=== PATIENT | female | born 1950 | race Caucasian/White ===

== ENCOUNTER → 2016-09-15 | Outpatient (CLI) | payer BC ==
--- NOTE | 2016-09-15 15:45 | BD ---
EXAMINATION TYPE: MG DEXA axial skeleton. DATE OF EXAM: 09/15/2016 COMPARISON: NONE CLINICAL HISTORY: 66-year-old female osteopenia Height: 61.5 IN Weight: 128 LBS FRAX RISK QUESTIONS: Alcohol (3 or more units per day): NO Family History (Parent hip fracture): NO Glucocorticoids (More than 3mos): NO (Ex: prednisone, prednisolone, methylprednisolone, dexamethasone, and hydrocortisone). History of Fracture in Adulthood: NO Secondary Osteoporosis: 1. Type 1 Diabetes: NO 2. Hyperthyroidism: NO 3. Menopause before 45: NO 4. Malnutrition: NO 5. Chronic liver disease: NO Rheumatoid Arthritis: NO Current Tobacco Use: NO RISK FACTORS HISTORY OF: Active: YES Diet low in dairy products/other sources of calcium: YES Postmenopausal woman: AGE 56 If Premenopausal, do you have irregular periods: Take estrogen and/or progesterone medications: YES HRT CREAM How lon YRS MEDICATIONS: Osteoporosis Medications: NOT NOW Which medication: Fosamax How Long: AGE 50 - 55 Additional Medications: CALCIUM, VIT D, ATORVASTATIN, HRT CREAM,VAGIFEM, GLUCOSAMINE SULFATE, OMEGA 3 OIL, MILK THISTLE, 5HTP, FOLATE, B12, MULTI VIT, BABY ASPIRIN, BOSWELLIA, NASAL SPRAY FOR ALLERGIES, EXAM MEASUREMENTS: Bone mineral densitometry was performed using the [employer] System. Bone mineral density as measured about the Lumbar spine is: ----- L1-L4(G/cm2): 1.031 T Score Values are as follows: ----- L2: -2.1 ----- L3: -1.0 ----- L4: -0.5 ----- L1-L4: -1.2 Bone mineral density BASELINE Bone mineral density about the R hip (g/cm2): 0.930 Bone mineral density about the L hip (g/cm2): 0.945 T Score values are as follows: -----R Neck: -0.8 -----L Neck: -0.7 -----R Total: -0.4 -----L Total: -0.1 Bone mineral density BASELINE IMPRESSION: Osteopenia as indicated by T score values in the lumbar spine. There is slightly increased risk of fracture and the patient may be considered for treatment. Re-Screen 2-5 years. NOTE: T-SCORE=SD OF THE YOUNG ADULT MEAN.
--- NOTE | 2016-09-16 11:31 | MM ---
Reason for exam: screening (asymptomatic). Last mammogram was performed 10 months ago. History: Patient is postmenopausal and is nulliparous. Taking estrogen for 10 years. Taking progesterone for 10 years. Physical Findings: A clinical breast exam by your physician is recommended on an annual basis and results should be correlated with mammographic findings. MG 3D Screening Mammo W/Cad Bilateral CC and MLO view(s) were taken. Prior study comparison: November 05, 2015, mammogram. June 17, 2014, mammogram. The breast tissue is heterogeneously dense. This may lower the sensitivity of mammography. Finding: There are typically benign round calcifications in the left breast. There is a chronic nodularity in the left breast. There is no discrete abnormality. ASSESSMENT: Benign, BI-RAD 2 RECOMMENDATION: Routine screening mammogram of both breasts in 1 year.
== END | disposition home or self-care (01) ==
LOC: RADMAMWWP 13:36
PROVIDERS: ATTEND Family Medicine
CPT/HCPCS: 77080; 77063; G0202

== ENCOUNTER → 2017-06-14 | Outpatient (CLI) | payer MEDICARE, OTHER ==
--- NOTE | 2017-06-15 08:00 | CT ---
EXAMINATION TYPE: CT soft tissue neck w con DATE OF EXAM: 06/14/2017 HISTORY: Lump sensation to right side of throat COMPARISON: NONE CT DLP: 339 mGycm. Automated Exposure Control for Dose Reduction was Utilized. TECHNIQUE: CT scan of the neck is performed with IV Contrast, patient injected with 100 mL of Isovue 300, axial images are obtained, coronal and sagittal reformatted images are reviewed. FINDINGS: Airway: Artifact from cavitary fillings is noted. Airway is otherwise patent. Region of the epiglotti s and vallecula appear within normal limits. Thyroid gland is unremarkable. Lung apices show mild omi pical pleural/parenchymal scarring. Parotid/submandibular glands: No gross abnormality seen. Carotid/Vascular Structures: Mild calcified plaque is seen at the left carotid bulb. No significant s tenosis is present bilaterally. There is dominant right vertebral artery noted. Osseous Structures: There is moderate to advanced spurring and disc space narrowing C5-C6 level. Other: There are scattered subcentimeter lymph nodes throughout the neck bilaterally. No greater than 1 cm asymmetric suspicious neck adenopathy is present. IMPRESSION: Area of concern was not marked by technologist in right side of neck. No obvious suspicio us mass or adenopathy noted.
== END | disposition home or self-care (01) ==
LOC: RADCTMAIN 17:23
PROVIDERS: ATTEND Otolaryngology
DX: R22.1 Localized swelling, mass and lump, neck (principal)
CPT/HCPCS: 82565; 84520; 70491; 36415; Q9967

== ENCOUNTER → 2017-07-15 | Outpatient (CLI) | payer MEDICARE, OTHER ==
[2017-07-15 10:29] LABS: HCT 43.3 % (34.0-46.0); HGB 13.4 gm/dL (11.4-16.0); MCH 27.5 pg (25.0-35.0); MCV 88.9 fL (80.0-100.0); Mean Platelet Volume 7.6; Platelet Count 266 k/uL (150-450); RBC 4.87 m/uL (3.80-5.40); RDW 13.6 % (11.5-15.5); WBC 4.8 k/uL (3.8-10.6)
[2017-07-15 10:45] LABS: Calcium 9.2 mg/dL (8.4-10.2); Potassium 4.3 mmol/L (3.5-5.1)
== END | disposition home or self-care (01) ==
LOC: LABWHC1 10:01
PROVIDERS: ATTEND Family Medicine
DX: Z00.00 Encounter for general adult medical examination without abnormal findings (principal); E78.5 Hyperlipidemia, unspecified; R00.2 Palpitations; E55.9 Vitamin D deficiency, unspecified; M85.80 Other specified disorders of bone density and structure, unspecified site
CPT/HCPCS: 36415; 80048; 80061; 82306; 82550; 83735; 84443; 84450; 84460; 85027

== ENCOUNTER → 2017-10-12 | Outpatient (CLI) | payer MEDICARE, OTHER ==
--- NOTE | 2017-10-13 08:06 | MM ---
Reason for exam: screening (asymptomatic). Last mammogram was performed 1 year and 1 month ago. History: Patient is postmenopausal and is nulliparous. Taking estrogen for 10 years. Taking progesterone for 10 years. Physical Findings: A clinical breast exam by your physician is recommended on an annual basis and results should be correlated with mammographic findings. MG 3D Screening Mammo W/Cad Bilateral CC and MLO view(s) were taken. Prior study comparison: September 15, 2016, bilateral MG 3d screening mammo w/cad. November 05, 2015, mammogram. The breast tissue is heterogeneously dense. This may lower the sensitivity of mammography. There is benign appearing round calcifications in the left breast. There is chronic nodularity bilaterally. There is no discrete abnormality. ASSESSMENT: Benign, BI-RAD 2 RECOMMENDATION: Routine screening mammogram of both breasts in 1 year.
== END | disposition home or self-care (01) ==
LOC: RADMAMWWP 10:01
PROVIDERS: ATTEND Family Medicine
DX: Z12.31 Encounter for screening mammogram for malignant neoplasm of breast (principal)
CPT/HCPCS: 77063; 77067

== ENCOUNTER → 2018-02-20 | Outpatient (CLI) | payer MEDICARE, OTHER ==
[2018-02-20 18:58] LABS: Albumin 4.6 g/dL (3.80-4.90); Albumin/Globulin Ratio 2.88 (1.20-2.10); Anion Gap 6.2 mmol/L (4.00-12.00); Calcium 9.2 mg/dL (8.7-10.3); Carbon Dioxide 25.8 mmol/L (21.6-31.8); Globulin 1.6 g/dL (2.1-3.7); Potassium 4.9 mmol/L (3.5-5.5); Total Bilirubin 0.7 mg/dL (0.2-1.2); Total Protein 6.2 g/dL (6.2-8.2)
[2018-02-20 19:01] LABS: DHEA Sulfate 128.1 ug/dL (26.0-430.0); Progesterone 0.5 ng/mL
== END ==
LOC: LABWHC1 11:13
PROVIDERS: ATTEND Internal Medicine Endocrinology, Diabetes & Metabolism
DX: R23.2 Flushing (principal)
CPT/HCPCS: 36415; 80053; 82627; 82670; 84144; 84403; 84443

== ENCOUNTER → 2019-01-03 | Outpatient (CLI) | payer MEDICARE, OTHER ==
--- NOTE | 2019-01-05 10:27 | MM ---
Reason for exam: screening (asymptomatic). Last mammogram was performed 1 year and 3 months ago. History: Patient is postmenopausal and is nulliparous. Taking estrogen for 10 years. Taking progesterone for 10 years. Physical Findings: A clinical breast exam by your physician is recommended on an annual basis and results should be correlated with mammographic findings. MG 3D Screening Mammo W/Cad Bilateral CC and MLO view(s) were taken. Prior study comparison: October 12, 2017, bilateral MG 3d screening mammo w/cad. September 15, 2016, bilateral MG 3d screening mammo w/cad. The breast tissue is heterogeneously dense. This may lower the sensitivity of mammography. There is chronic nodularity in the left breast. Central nodular focal asymmetry just lateral to the retroareolar plane appears new. Adjacent chronic nodularity noted. ASSESSMENT: Incomplete: need additional imaging evaluation, BI-RAD 0 RECOMMENDATION: Special view mammogram of the left breast. If lesion persists on supplemental views, image directed ultrasound is recommended. [facility] will attempt to contact patient to return for supplemental views and ultrasound if indicated.
== END ==
LOC: RADMAMWWP 15:03
PROVIDERS: ATTEND Internal Medicine
DX: Z12.31 Encounter for screening mammogram for malignant neoplasm of breast (principal)
CPT/HCPCS: 77063; 77067

== ENCOUNTER → 2019-01-15 | Outpatient (CLI) | payer MEDICARE, OTHER ==
--- NOTE | 2019-01-15 12:25 | MM ---
Reason for exam: additional evaluation requested from abnormal screening. Last mammogram was performed less than 1 month ago. History: Patient is postmenopausal and is nulliparous. Benign excisional biopsy of the left breast. Taking estrogen beginning at age 56. Taking progesterone beginning at age 56. Physical Findings: Nurse did not find any significant physical abnormalities on exam. MG 3D Work Up W/Cad LT Spot compression CC, spot compression MLO, and ML view(s) were taken of the left breast. Prior study comparison: January 03, 2019, bilateral MG 3d screening mammo w/cad. October 12, 2017, bilateral MG 3d screening mammo w/cad. The breast tissue is heterogeneously dense. This may lower the sensitivity of mammography. There is a persistent left lower inner quadrant 4mm mass at middle depth, new from priors. These results were verbally communicated with the patient and result sheet given to the patient on 01/15/19. ASSESSMENT: Incomplete: need additional imaging evaluation, BI-RAD 0 RECOMMENDATION: Ultrasound of the left breast. (lower inner quadrant)
--- NOTE | 2019-01-15 12:27 | USB ---
Reason for exam: additional evaluation requested from abnormal screening. History: Patient is postmenopausal and is nulliparous. Benign excisional biopsy of the left breast. Taking estrogen beginning at age 56. Taking progesterone beginning at age 56. US Breast Workup Limited LT Left limited breast ultrasound including focal area of concern, retroareolar and axilla demonstrates no cystic or solid lesion seen. a 0.3 x 0.3 x 0.3cm round, cystic, hypoechoic lesion at 3 o'clock, likely small cyst. Precautionary 6 month follow up left mammogram. These results were verbally communicated with the patient and result sheet given to the patient on 01/15/19. ASSESSMENT: Probably benign, BI-RAD 3 RECOMMENDATION: Follow-up diagnostic mammogram of the left breast in 6 months.
== END | disposition home or self-care (01) ==
LOC: RADMAMWWP 10:06
PROVIDERS: ATTEND Internal Medicine
DX: R92.8 Other abnormal and inconclusive findings on diagnostic imaging of breast (principal); R92.2 Inconclusive mammogram
CPT/HCPCS: 77065; 76642; G0279; 77061

== ENCOUNTER → 2019-03-08 | Outpatient (CLI) | payer MEDICARE, OTHER ==
[2019-03-08 17:06] LABS: Chol/HDL Ratio 3.14; LDL Cholesterol,Calculated 109.8 mg/dL (0.0-131.0); VLDL Calculation 31.2 mg/dL (5.00-40.00)
== END | disposition home or self-care (01) ==
LOC: LABWHC1 10:28
PROVIDERS: ATTEND Family Medicine
DX: E78.5 Hyperlipidemia, unspecified (principal)
CPT/HCPCS: 36415; 80061; 82550; 84450; 84460

== ENCOUNTER → 2019-09-28 | Outpatient (CLI) | payer MEDICARE, OTHER ==
[2019-09-28 18:22] LABS: African American GFR (CKD) 67.5 (60.0-200.0); Albumin 4.6 g/dL (3.80-4.90); Albumin/Globulin Ratio 2.19 (1.60-3.17); Anion Gap 5.9 mmol/L (4.00-12.00); Calcium 9.5 mg/dL (8.7-10.3); Carbon Dioxide 27.1 mmol/L (21.6-31.8); Globulin 2.1 g/dL (1.6-3.3); Non-African American GFR(CKD) 58.2 (60.0-200.0); Potassium 4.6 mmol/L (3.5-5.5); Total Bilirubin 0.5 mg/dL (0.2-1.2); Total Protein 6.7 g/dL (6.2-8.2)
[2019-09-28 18:43] LABS: Hemoglobin A1C 5.4 % (4.0-6.0)
== END | disposition home or self-care (01) ==
LOC: LABWHC1 08:22
PROVIDERS: ATTEND Family Medicine
DX: Z00.00 Encounter for general adult medical examination without abnormal findings (principal); E78.5 Hyperlipidemia, unspecified; R73.9 Hyperglycemia, unspecified
CPT/HCPCS: 36415; 80053; 82306; 83036; 84443

== ENCOUNTER → 2020-02-01 | Outpatient (CLI) | payer MEDICARE, OTHER ==
--- NOTE | 2020-02-04 09:21 | MM ---
Reason for exam: additional evaluation requested from prior study. Last mammogram was performed 1 year and 1 month ago. History: Patient is postmenopausal and is nulliparous. Benign excisional biopsy of the left breast. Taking estrogen beginning at age 56. Taking progesterone beginning at age 56. Physical Findings: Nurse did not find any significant physical abnormalities on exam. MG 3D Diag Mammo W/Cad ROLLY Bilateral CC and MLO view(s) were taken. Prior study comparison: January 15, 2019, left breast MG 3d work up w/cad LT. January 03, 2019, bilateral MG 3d screening mammo w/cad. The breast tissue is heterogeneously dense. This may lower the sensitivity of mammography. There is chronic nodularity in the left breast. There is no discrete abnormality including area of concern on left breast from 2019. No significant new findings when compared with previous films. These results were verbally communicated with the patient and result sheet given to the patient on 02/01/20. ASSESSMENT: Benign, BI-RAD 2 RECOMMENDATION: Routine screening mammogram of both breasts in 1 year.
== END | disposition home or self-care (01) ==
LOC: RADMAMWWP 08:59
PROVIDERS: ATTEND Family Medicine
DX: R92.8 Other abnormal and inconclusive findings on diagnostic imaging of breast (principal)
CPT/HCPCS: 77066; G0279; 77062

== ENCOUNTER → 2020-05-16 | Outpatient (CLI) | payer MEDICARE, OTHER ==
--- NOTE | 2020-05-16 16:01 | US ---
EXAMINATION TYPE: US pelvis complete transvag DATE OF EXAM: 05/16/2020 COMPARISON: NONE CLINICAL HISTORY: 70-year-old female R10.2 Pelvic pressure greater on the left TECHNIQUE: Transabdominal sonographic images of the pelvis were acquired. Transvaginal sonographic i mages were medically necessary to better assess the following anatomy: uterus and ovaries Date of LMP: unknown FINDINGS: EXAM MEASUREMENTS: Uterus: 6.7 x 2.5 x 4.2 cm Endometrial Stripe: 0.3 cm Right Ovary: unable to visualize Left Ovary: unable to visualize 1. Uterus: Anteverted 2. Endometrium: calcifications noted 3. Right Ovary: Obscured by overlying bowel gas 4. Left Ovary: Obscured by overlying bowel gas 5. Bilateral Adnexa: increased vascularity left adnexa 6. Posterior cul-de-sac: appears wnl IMPRESSION: 1. Thin endometrial stripe at 3 mm. Some calcifications are present suggesting sequela of prior infec tion or instrumentation. 2. Neither ovary could be visualized. 3. Increased left adnexal vascularity may be seen with pelvic congestion syndrome. Clinically correla te.
== END | disposition home or self-care (01) ==
LOC: RADUSWWP 13:40
PROVIDERS: ATTEND Family Medicine
DX: R93.89 Abnormal findings on diagnostic imaging of other specified body structures (principal)
CPT/HCPCS: 76830; 76856

== ENCOUNTER → 2020-05-22 | Outpatient (CLI) | payer MEDICARE, OTHER ==
[2020-05-22 10:56] LABS: Appearance,Urine Clear (Clear); Bilirubin,Urine Negative (Negative); Blood,Urine Negative (Negative); Color,Urine Light Yellow; Glucose,Urine (UA) Negative (Negative); Ketones,Urine Negative (Negative); Leukocyte Esterase,Urine Trace (Negative); Nitrite,Urine Negative (Negative); PH, Urine 6.5 (5.0-8.0); Protein,Urine Negative (Negative); RBC,Urine <1 /hpf (0-5); Specific Gravity,Urine 1.008 (1.001-1.035); Urobilinogen,Urine <2.0 mg/dL (<2.0); WBC,Urine 1 /hpf (0-5)
[2020-05-22 18:42] LABS: HCT 43.3 % (37.2-46.3); HGB 13.6 g/dL (12.0-15.0); MCH 28.8 pg (27.0-32.0); MCHC 31.4 g/dL (32.0-37.0); MCV 91.7 fL (80.0-97.0); Mean Platelet Volume 11.3 fL (9.5-12.2); Platelet Count 263 X 10*3/uL (140-440); RBC 4.72 X 10*6/uL (4.10-5.20); RDW 14.1 % (11.5-14.5)
[2020-05-22 20:57] LABS: Hemoglobin A1C 5.3 % (4.0-6.0)
[2020-05-22 21:48] LABS: African American GFR (CKD) 59.7 (60.0-200.0); Albumin 4.6 g/dL (3.80-4.90); Albumin/Globulin Ratio 2.71 (1.60-3.17); Anion Gap 9.4 mmol/L (4.00-12.00); BUN/Creat Ratio 11.82 Ratio (12.00-20.00); Calcium 9.4 mg/dL (8.7-10.3); Carbon Dioxide 23.6 mmol/L (21.6-31.8); Chol/HDL Ratio 3.33; Globulin 1.7 g/dL (1.6-3.3); Non-African American GFR(CKD) 51.5 (60.0-200.0); Potassium 4.8 mmol/L (3.5-5.5); Total Bilirubin 0.7 mg/dL (0.3-1.2); Total Protein 6.3 g/dL (6.2-8.2)
== END | disposition home or self-care (01) ==
LOC: LABWHC1 09:16
PROVIDERS: ATTEND Family Medicine
DX: E78.5 Hyperlipidemia, unspecified (principal); R73.9 Hyperglycemia, unspecified; E55.9 Vitamin D deficiency, unspecified; E28.39 Other primary ovarian failure; N95.2 Postmenopausal atrophic vaginitis; M85.80 Other specified disorders of bone density and structure, unspecified site; N63.0 Unspecified lump in unspecified breast; R30.0 Dysuria; R10.2 Pelvic and perineal pain
CPT/HCPCS: 36415; 80053; 80061; 81001; 82306; 83036; 84402; 84443; 85027

== ENCOUNTER → 2020-07-07 | Outpatient (CLI) | payer MEDICARE, OTHER | END | disposition home or self-care (01) | LOC: LABWHC1 09:00 | PROVIDERS: ATTEND Family Medicine | DX: E72.12 Methylenetetrahydrofolate reductase deficiency (principal) | CPT/HCPCS: 36415; 83090 ==

== ENCOUNTER → 2021-02-18 | Outpatient (CLI) | payer MEDICARE, OTHER ==
--- NOTE | 2021-02-19 12:17 | MM ---
Reason for exam: screening (asymptomatic). Last mammogram was performed 1 year and 1 month ago. History: Patient is postmenopausal and is nulliparous. Benign excisional biopsy of the left breast. Taking estrogen beginning at age 56. Taking progesterone beginning at age 56. Physical Findings: A clinical breast exam by your physician is recommended on an annual basis and results should be correlated with mammographic findings. MG 3D Screening Mammo W/Cad Bilateral CC and MLO view(s) were taken. Prior study comparison: February 01, 2020, bilateral MG 3d diag mammo w/cad ROLLY. January 15, 2019, left breast MG 3d work up w/cad LT. The breast tissue is heterogeneously dense. This may lower the sensitivity of mammography. There are benign appearing round calcifications bilaterally. There is chronic nodularity in the left breast. There is no discrete abnormality. ASSESSMENT: Benign, BI-RAD 2 RECOMMENDATION: Routine screening mammogram of both breasts in 1 year.
== END | disposition home or self-care (01) ==
LOC: RADMAMWWP 09:37
PROVIDERS: ATTEND Family Medicine
DX: Z12.31 Encounter for screening mammogram for malignant neoplasm of breast (principal); Z78.0 Asymptomatic menopausal state
CPT/HCPCS: 77063; 77067

== ENCOUNTER → 2021-02-20 | Outpatient (CLI) | payer MEDICARE, OTHER ==
--- NOTE | 2021-02-20 16:26 | BD ---
EXAMINATION TYPE: Axial Bone Density DATE OF EXAM: 02/20/2021 COMPARISON: 09/15/2016 DEXA bone scan. CLINICAL HISTORY: Osteopenia. Height: 61 IN Weight: 129 LBS RISK FACTORS HISTORY OF: Family History of Osteoporosis: YES MOTHER Active: YES Diet low in dairy products/other sources of calcium: YES Postmenopausal woman: AGE 55 Take estrogen and/or progesterone medications: YES HORMONE CREAM How lon YEARS MEDICATIONS: Additional Medications: HORMONE CREAM, NASAL SPRAY, ATIVAN, MELOXICAM, PEPCID, ATORVASTATIN, EXAM MEASUREMENTS: Bone mineral densitometry was performed using the [employer] System. Bone mineral density as measured about the Lumbar spine is: ----- L1-L4(G/cm2): 1.043 T Score Values are as follows: ----- L2: -1.9 ----- L3: -0.9 ----- L4: -0.5 ----- L1-L4: -1.1 Bone mineral density has: Increased 0.7% since study of: 09/15/2016 Bone mineral density about the R hip (g/cm2): 0.964 Bone mineral density about the L hip (g/cm2): 0.978 T Score values are as follows: -----R Neck: -0.5 -----L Neck: -0.4 -----R Total: -0.5 -----L Total: -0.2 Bone mineral density has: Decreased -1.2% since study of: 09/15/2016 IMPRESSION: Osteopenia (T Score between -2.5 and -1) in the low back remains present. There is slightly increased risk of fracture and the patient may be considered for treatment. Re-Screen 2-5 years. NOTE: T-SCORE=SD OF THE YOUNG ADULT MEAN.
== END | disposition home or self-care (01) ==
LOC: RADBDWWP 15:01
PROVIDERS: ATTEND Family Medicine
DX: M85.88 Other specified disorders of bone density and structure, other site (principal)
CPT/HCPCS: 77080

== ENCOUNTER → 2021-04-08 | Outpatient (CLI) | payer MEDICARE, OTHER ==
--- NOTE | 2021-04-08 10:00 | XR ---
EXAMINATION TYPE: XR Hip LT and AP Pelvis DATE OF EXAM: 04/08/2021 CLINICAL HISTORY: pain TECHNIQUE: Single view the pelvis is submitted. 2 views of left hip are also submitted. FINDINGS: No evidence for fracture, dislocation or bony lesion. Joint spaces are well-preserved. S I joints appear symmetric. IMPRESSION: 1. No acute fracture or dislocation seen. ICD 10 NO FRACTURE, INITIAL EVALUATION
--- NOTE | 2021-04-08 10:27 | XR ---
EXAMINATION TYPE: XR lumbar spine with bend/flex DATE OF EXAM: 04/08/2021 CLINICAL HISTORY: pain COMPARISON: NONE TECHNIQUE: Frontal, lateral, and oblique images of the lumbar spine are obtained. Flexion and extensi on views are obtained as well. FINDINGS: There is grade 1 anterolisthesis L4 on L5 measuring 5.3 mm at neutral, 3.1 mm at extension and 5.3 mm at flexion. There is a grade 1 anterolisthesis of L5 on S1 measuring 2.7 mm at neutral, 2. 4 mm upon extension and 6.5 mm at flexion. The remaining levels are within normal limits. Facet joint arthropathy noted. No compression fracture seen. Moderate to severe lower lumbar facet joint arthrop athy. IMPRESSION: As above
== END | disposition home or self-care (01) ==
LOC: RADXRMAIN 09:13
PROVIDERS: ATTEND Family Medicine
DX: M47.816 Spondylosis without myelopathy or radiculopathy, lumbar region (principal); M43.8X6 Other specified deforming dorsopathies, lumbar region; M43.16 Spondylolisthesis, lumbar region; R10.32 Left lower quadrant pain; M25.552 Pain in left hip
CPT/HCPCS: 72114; 73502

== ENCOUNTER → 2022-03-30 | Outpatient (CLI) | payer MEDICARE, OTHER ==
--- NOTE | 2022-03-31 09:38 | MM ---
Reason for Exam: Screening (asymptomatic). Last mammogram was performed 1 year(s) and 1 month(s) ago. Patient History: Menarche at age 14. Patient has no children. Postmenopausal. Currently using Estrogen, starting at age 56. Currently using Progesterone, starting at age 56. Benign Excisional Biopsy on the left side. Risk Values: Tammie 5 year model risk: 2.3%. NCI Lifetime model risk: 6.9%. Prior Study Comparison: 01/15/2019 Left Diagnostic Mammogram, [facility]. 02/01/2020 Bilateral Diagnostic Mammogram, [facility]. 02/18/2021 Bilateral Screening Mammogram, [facility]. Tissue Density: The breast tissue is heterogeneously dense. This may lower the sensitivity of mammography. Findings: Analyzed By CAD. There is no suspicious group of microcalcifications or new suspicious mass in either breast. Benign calcifications bilaterally. Chronic nodularity in the left breast. Overall Assessment: Benign, BI-RAD 2 Management: Screening Mammogram of both breasts in 1 year. A clinical breast exam by your physician is recommended on an annual basis and results should be correlated with mammographic findings. Electronically signed and approved by: Yevgeniy Weiss D.O.
== END | disposition home or self-care (01) ==
LOC: RADMAMWWP 09:18
PROVIDERS: ATTEND Family Medicine
DX: Z12.31 Encounter for screening mammogram for malignant neoplasm of breast (principal); Z78.0 Asymptomatic menopausal state
CPT/HCPCS: 77063; 77067

== ENCOUNTER → 2022-06-04 | Outpatient (CLI) | payer MEDICARE, OTHER ==
[2022-06-04 18:56] LABS: Basophils # (A) 0.05 X 10*3/uL (0.00-0.10); Basophils % (A) 0.9 %; Eosinophils # (A) 0.02 X 10*3/uL (0.04-0.35); Eosinophils % (A) 0.3 %; HCT 45.5 % (37.2-46.3); HGB 13.9 g/dL (12.0-15.0); Immature Grans, Automated 0.3 %; Lymphocytes # (A) 1.53 X 10*3/uL (0.90-5.00); Lymphocytes % (A) 26.6 %; MCH 28.3 pg (27.0-32.0); MCHC 30.5 g/dL (32.0-37.0); MCV 92.5 fL (80.0-97.0); Mean Platelet Volume 10.9 fL (9.5-12.2); Monocytes # (A) 0.45 X 10*3/uL (0.20-1.00); Monocytes % (A) 7.8 %; NRBC Per 100 WBC 0 /100 WBCS (0.0-0.0); Neutrophils # (A) 3.68 X 10*3/uL (1.80-7.70); Neutrophils % (A) 64.1 %; Platelet Count 287 X 10*3/uL (140-440); RBC 4.92 X 10*6/uL (4.10-5.20); RDW 13.8 % (11.5-14.5); WBC 5.75 X 10*3/uL (4.50-10.00)
[2022-06-04 19:24] LABS: African American GFR (CKD) 66.1 (60.0-200.0); Albumin 4.7 g/dL (3.8-4.9); Albumin/Globulin Ratio 1.96 (1.60-3.17); Anion Gap 12.1 mmol/L (10.00-18.00); BUN/Creat Ratio 17.7 Ratio (12.00-20.00); Blood Urea Nitrogen 17.7 mg/dL (9.0-27.0); Calcium 9.8 mg/dL (8.7-10.3); Carbon Dioxide 23.9 mmol/L (20.0-27.5); Globulin 2.4 g/dL (1.6-3.3); Potassium 5.1 mmol/L (3.5-5.5); Total Bilirubin 0.3 mg/dL (0.30-1.20); Total Protein 7.1 g/dL (6.2-8.2)
== END | disposition home or self-care (01) ==
LOC: LABWHC1 10:50
PROVIDERS: ATTEND Nurse Practitioner Family
DX: K92.1 Melena (principal)
CPT/HCPCS: 36415; 80053; 85025

== ENCOUNTER → 2023-05-06 | Outpatient (CLI) | payer MEDICARE, OTHER ==
--- NOTE | 2023-05-06 15:35 | XR ---
EXAMINATION TYPE: XR finger RT DATE OF EXAM: 05/06/2023 COMPARISON: None HISTORY: Chronic pain first digit TECHNIQUE: 3 view right thumb FINDINGS: No acute fractures or dislocations are evident. Joint spaces and mild diffuse narrowing. So me spurring is noted at the dorsal distal phalanx right thumb. Follow up exams can be performed 7-10 days from acute trauma for continued pain. IMPRESSION: 1. No acute osseous abnormality. 2. Mild degenerative joint changes right thumb.
--- NOTE | 2023-05-06 15:36 | XR ---
EXAMINATION TYPE: XR hand complete RT DATE OF EXAM: 05/06/2023 COMPARISON: None HISTORY: Chronic pain TECHNIQUE: 3 view right hand FINDINGS: No acute fractures or dislocations are evident. The soft tissues appear normal. Diffuse jose raul rowing of the proximal and distal interphalangeal joint spaces is present. Follow up exams can be performed 7-10 days from acute trauma for continued pain. IMPRESSION: 1. Mild chronic appearing joint changes right hand. 2. No acute osseous abnormality.
== END | disposition home or self-care (01) ==
LOC: RADXRMAIN 15:12
PROVIDERS: ATTEND Internal Medicine
DX: M77.8 Other enthesopathies, not elsewhere classified (principal); M79.641 Pain in right hand

== ENCOUNTER → 2023-05-11 | Outpatient (CLI) | payer MEDICARE, OTHER ==
--- NOTE | 2023-05-11 17:26 | BD ---
EXAMINATION TYPE: Axial Bone Density DATE OF EXAM: 05/11/2023 CLINICAL HISTORY: 73 years old Female. ICD-10 CODE: M85.80 OT DISRD OF BONE DENSITY Height: 61.75" Weight: 134.9lbs FRAX RISK QUESTIONS: Alcohol (3 or more units per day): No Family History (Parent hip fracture): No Glucocorticoids (More than 3mos): No (Ex: prednisone, prednisolone, methylprednisolone, dexamethasone, and hydrocortisone). History of Fracture in Adulthood: No Secondary Osteoporosis: 1. Type 1 Diabetes: No 2. Hyperthyroidism: No 3. Menopause before 45: Unknown 4. Malnutrition: No 5. Chronic liver disease: No Rheumatoid Arthritis: No Current Tobacco Use: No RISK FACTORS HISTORY OF: Hip Fracture (Right/Left): No Spine Fracture: No History of Wrist Fracture: No Surgery to Spine/Hip(right/left)/Wrist (right/left): No MEDICATIONS: Thyroid Medications: No Osteoporosis Medications: No EXAM MEASUREMENTS: Bone mineral densitometry was performed using the [employer] System. Bone mineral density as measured about the Lumbar spine is: ----- L1-L4(G/cm2): 1.067 T Score Values are as follows: ----- L1: -1.7 ----- L2: -2.1 ----- L3: -08 ----- L4: 0.0 ----- L1-L4: -0.9 Z Score Values are as follows: ----- L1: 0.1 ----- L2: -0.3 ----- L3: 1.0 ----- L4: 1.8 ----- L1-L4: 0.9 Bone mineral density has: increased 2.3% since study of: 02/20/2021 Bone mineral density about the R hip (g/cm2): 0.987 Bone mineral density about the L hip (g/cm2): 0.942 T Score values are as follows: -----R Neck: -0.1 -----L Neck: 0.0 -----R Total: -0.2 -----L Total: -0.5 Z Score values are as follows: -----R Neck: 1.7 -----L Neck: 1.8 -----R Total: 1.4 -----L Total: 1.1 Bone mineral density has: increased 0.3% since study of: FRAX%s: The graph provided illustrates a 7.4% chance for a major osteoporotic fx and a 0.5% chance fo r the hips probability for fx in 10 years time. IMPRESSION: Normal (Values between +1 and -1 indicate normal bone mass). Note that measurements are bordering on osteopenia in the lumbar spine. Consider repeating this study in 5 years or sooner if there is some n ew clinical indication. NOTE: T-SCORE=SD OF THE YOUNG ADULT MEAN.
--- NOTE | 2023-05-12 10:24 | MM ---
Reason for Exam: Screening (asymptomatic). Last mammogram was performed 1 year(s) and 2 month(s) ago. Patient History: Menarche at age 14. Patient has no children. Postmenopausal. Currently using Estrogen, starting at age 56. Currently using Progesterone, starting at age 56. Benign Excisional Biopsy on the left side. Risk Values: Tammie 5 year model risk: 2.3%. NCI Lifetime model risk: 6.3%. Prior Study Comparison: 02/01/2020 Bilateral Diagnostic Mammogram, [facility]. 02/18/2021 Bilateral Screening Mammogram, [facility]. 03/30/2022 Bilateral MG 3D screening mammo w/cad, [facility]. Tissue Density: The breasts are heterogeneously dense, which may obscure small masses. Findings: Analyzed By CAD. There is no suspicious group of microcalcifications or new suspicious mass in either breast. Overall Assessment: Benign, BI-RAD 2 Management: Screening Mammogram of both breasts in 1 year. . Patient should continue monthly self-breast exams. A clinical breast exam by your physician is recommended on an annual basis. This exam should not preclude additional follow-up of suspicious palpable abnormalities. Note on Tammie scores and lifetime risk: 1. A Tammie score greater than 3% is considered moderate risk. If this is the case, consider specialist referral to assess eligibility for a risk reducing agent. 2. If overall lifetime risk for the development of breast cancer is 20% or higher, the patient may qualify for future screening with alternating mammogram and breast MRI. Electronically signed and approved by: Morgan Alvarez M.D. Radiologis
== END | disposition home or self-care (01) ==
LOC: RADMAMWWP 10:30
PROVIDERS: ATTEND Internal Medicine
DX: Z12.31 Encounter for screening mammogram for malignant neoplasm of breast (principal); M85.89 Other specified disorders of bone density and structure, multiple sites; Z78.0 Asymptomatic menopausal state
CPT/HCPCS: 77063; 77067; 77080

== ENCOUNTER → 2023-10-31 | Outpatient (CLI) | payer MEDICARE, OTHER ==
--- NOTE | 2023-10-31 16:37 | XR ---
EXAMINATION TYPE: XR foot complete RT, XR ankle complete RT DATE OF EXAM: 10/31/2023 4:18 PM CLINICAL INDICATION: Female, 73 years old with history of M79.671 PAIN IN RIGHT FOOT; [facility] COMPARISON: None TECHNIQUE: XR foot complete RT, XR ankle complete RT examined in the AP, oblique, and lateral project ions. FINDINGS: No evidence of any acute osseous pathology. Multifocal degeneration changes throughout the joints of the foot with osteophyte formation and joint space narrowing. Calcaneal plantar spurring is present. IMPRESSION: 1. No evidence of acute fracture. 2. Calcaneal plantar spurring correlate for plantar fasciitis. Correlate with MRI. 3. Multifocal degeneration changes throughout the joints of the foot.
== END | disposition home or self-care (01) ==
LOC: RADXRMAIN 15:56
PROVIDERS: ATTEND Internal Medicine
DX: M79.671 Pain in right foot

== ENCOUNTER → 2024-06-01 | Outpatient (CLI) | payer MEDICARE, OTHER ==
--- NOTE | 2024-06-06 08:42 | MM ---
Reason for Exam: Screening (asymptomatic). Last screening mammogram was performed 12 month(s) ago. Patient History: Menarche at age 14. Patient has no children. Postmenopausal. Currently using Estrogen, starting at age 56. Currently using Progesterone, starting at age 56. Benign Excisional Biopsy on the left side. Risk Values: Tammie 5 year model risk: 2.3%. NCI Lifetime model risk: 6.0%. Prior Study Comparison: 02/18/2021 Bilateral Screening Mammogram, [facility]. 03/30/2022 Bilateral MG 3D screening mammo w/cad, [facility]. 05/11/2023 Bilateral MG 3D screening mammo w/cad, [facility]. Tissue Density: The breasts are heterogeneously dense, which may obscure small masses. Findings: Analyzed By CAD. There are grouped calcifications in the upper outer quadrant left breast. No dominant mass or architectural distortion. Overall Assessment: Incomplete: need additional imaging evaluation, BI-RAD 0 Management: Diagnostic Mammogram of the left breast. . Patient should continue monthly self-breast exams. A clinical breast exam by your physician is recommended on an annual basis. This exam should not preclude additional follow-up of suspicious palpable abnormalities. Note on Tammie scores and lifetime risk: 1. A Tammie score greater than 3% is considered moderate risk. If this is the case, consider specialist referral to assess eligibility for a risk reducing agent. 2. If overall lifetime risk for the development of breast cancer is 20% or higher, the patient may qualify for future screening with alternating mammogram and breast MRI. [facility], , 06/01/2024 10:20 AM. Electronically signed and approved by: Wilber Knapp M.D. Radiologis
== END | disposition home or self-care (01) ==
LOC: RADMAMWWP 09:40
PROVIDERS: ATTEND Internal Medicine
DX: Z12.31 Encounter for screening mammogram for malignant neoplasm of breast (principal); R92.1 Mammographic calcification found on diagnostic imaging of breast; R92.333 Mammographic heterogeneous density, bilateral breasts; Z78.0 Asymptomatic menopausal state
CPT/HCPCS: 77063; 77067

== ENCOUNTER → 2024-06-06 | Outpatient (CLI) | payer MEDICARE, OTHER ==
--- NOTE | 2024-06-06 09:12 | MM ---
Reason for Exam: Additional evaluation requested from abnormal screening. Last screening mammogram was performed less than 1 month ago. Patient History: Menarche at age 14. Patient has no children. Postmenopausal. Currently using Estrogen, starting at age 56. Currently using Progesterone, starting at age 56. Benign Excisional Biopsy on the left side. Risk Values: Tammie 5 year model risk: 2.3%. NCI Lifetime model risk: 6.0%. Prior Study Comparison: 03/30/2022 Bilateral MG 3D screening mammo w/cad, [facility]. 05/11/2023 Bilateral MG 3D screening mammo w/cad, [facility]. 06/01/2024 Bilateral MG 3D screening mammo w/cad, [facility]. Tissue Density: Left: The breasts are heterogeneously dense, which may obscure small masses. Findings: Analyzed By CAD. Indeterminate cluster of microcalcifications upper outer left breast 6.3 cm from the nipple. Cluster of microcalcifications measures 4.6 x 3.7 mm. Tissue diagnosis is recommended. Overall Assessment: Suspicious, BI-RAD 4 Management: Stereotactic Core Biopsy of the left breast. . Results were given to the patient verbally at the time of exam. Patient should continue monthly self-breast exams. A clinical breast exam by your physician is recommended on an annual basis. This exam should not preclude additional follow-up of suspicious palpable abnormalities. Note on Tammie scores and lifetime risk: 1. A Tammie score greater than 3% is considered moderate risk. If this is the case, consider specialist referral to assess eligibility for a risk reducing agent. 2. If overall lifetime risk for the development of breast cancer is 20% or higher, the patient may qualify for future screening with alternating mammogram and breast MRI. [facility], , 06/06/2024 9:09 AM. Electronically signed and approved by: Morgan Alvarez M.D. Radiologis
== END | disposition home or self-care (01) ==
LOC: RADMAMWWP 08:35
PROVIDERS: ATTEND Internal Medicine
DX: R92.8 Other abnormal and inconclusive findings on diagnostic imaging of breast (principal); R92.332 Mammographic heterogeneous density, left breast; Z78.0 Asymptomatic menopausal state
CPT/HCPCS: 77065; G0279; 77061

== ENCOUNTER → 2024-06-22 | Day surgery (SDC) | payer MEDICARE, OTHER ==
[~2024-06-22] MED LIST: ALPRAZolam 0.25 MG TAB PO PRN
[2024-06-22 07:40] VITALS: RESP 16; TEMP 98.1
--- NOTE | 2024-06-22 08:09 | P.GSCN ---
History of Present Illness Consult date: 06/22/24 Reason for Consult: Abnormal left breast mammogram Requesting physician: Jules Bales History of present illness: Kae is a 74-year-old female seen in consultation for Dr. Bales regarding an abnormal left breast mammogram. She had a bilateral screening mammogram on 06-01-2024. This revealed some grouped calcifications in the upper outer quadrant of the left breast. A diagnostic left breast mammogram was recommended. No lesions of concern were noted in the right breast. This was personally reviewed and interpreted and discussed with radiology Dr. Knapp. The patient underwent a diagnostic left breast mammogram on 06 06 24 this revealed an indeterminate cluster of microcalcifications upper outer left breast 6.3 cm from the nipple. This spanned 4.6 x 3.7 mm. Stereotactic core biopsy was recommended. This was on a routine mammogram. The patient does not feel any new lumps masses or nodules of concern in either breast. She is not complaining of any nipple discharge or skin changes. She has not had any recent trauma or infection in the breast. Has had a left breast needle biopsy in the past which was benign. Caffeine: 2 cups/day nicotine: stopped at 22, used to smoke 2 cigarettes day for 1 year chocolate: occasional BCP: used for 10 years hormones: hormone replacement therapy cream Dr. Bales used for decades; topical for hot flashes; (estradiol 1.5, estriol 6, Prog 100, testestorone 1, Dhea 2., Pregnenolone 10) C-Hrt cream 1 ml daily she uses 1/2 ml Family History: mother: colon cancer brother: prostate cancer, recurrent treated with injections, SCC of his neck; fannie arthur Hormonal History: menarche: 15 G0 menopause: 52; topical hormones for 20 years Surgical History: 1. ventral hernia 2. endometriosis/done via vaginal area? Medical History: 1. anxiety 2. GERD 3. high cholesterol 4. anxiety 5. osteoarthritis Social History: nicotine: as above alcohol: daily, liquor drugs: none Review of Systems - Constitutional Denies fever, Denies weight loss - EENT EENT Comment(s): lens implant left eye, cataract surgery Eyes: bilateral dry eye, denies blurred vision Ears: deny: decreased hearing, tinnitus Ears, nose, mouth and throat: Denies dysphagia - Breasts bilateral: as per HPI - Cardiovascular Denies chest pain, Denies shortness of breath - Respiratory Denies cough, Denies 7 - Gastrointestinal Reports as per HPI - Genitourinary Genitourinary: Denies dysuria, Denies hematuria Menstruation: Reports postmenopausal - Musculoskeletal Reports as per HPI - Integumentary Denies rash, Denies unusual bruising - Neurological Denies headaches, Denies syncope - Psychiatric Reports anxiety - Endocrine Reports as per HPI - Hematologic/Lymphatic Denies easy bleeding, Denies easy bruising - Allergic/Immunologic Reports as per HPI, Reports seasonal allergies Past Medical History Past Medical History: Hyperlipidemia, Osteoarthritis (OA) History of Any Multi-Drug Resistant Organisms: None Reported Past Surgical History: Hernia Repair Additional Past Surgical History / Comment(s): Left breast biopsy. Past Anesthesia/Blood Transfusion Reactions: No Reported Reaction Past Psychological History: Anxiety Smoking Status: Never smoker Past Alcohol Use History: Daily Additional Past Alcohol Use History / Comment(s): one- two drink daily Past Drug Use History: None Reported Medications and Allergies Home Medications Medication Instructions Recorded Confirmed Type Acetaminophen [Tylenol] 3,900 mg PO DAILY 06/11/24 06/22/24 History Atorvastatin [Lipitor] 20 mg PO DAILY 06/11/24 06/22/24 History Boswellia Cam/Turmeric Xt 500 mg PO DAILY 06/11/24 06/22/24 History [Synovx Relief Softgel] Cyanocobalamin (Vitamin B-12) 5,000 mcg PO DAILY 06/11/24 06/11/24 History [Vitamin B-12] Flunisolide Nasal [place] [Nasalide] 2 spray EA NOSTRIL DAILY 06/11/24 06/22/24 History Glucosamine HCl/Chondroitin Garcia 1 each PO DAILY 06/11/24 06/22/24 History [Glucosamine-Chondroitin Cap] Multivitamins, Thera [Multivitamin 1 tab PO DAILY 06/11/24 06/11/24 History (formulary)] clonazePAM [KlonoPIN] 0.5 mg PO BID 06/11/24 06/22/24 History cycloSPORINE 0.05% OPHTH SOLN 1 applicator BOTH EYES Q12H 06/11/24 06/22/24 History [Restasis] Allergies Allergy/AdvReac Type Severity Reaction Status Date / Time celecoxib [From Celebrex] Allergy Rash/Hives Verified 06/22/24 07:25 Surgical - Exam Vital Signs Temp Pulse Resp BP 98.1 F 80 16 116/66 06/22/24 07:28 06/22/24 07:28 06/22/24 07:06/22/24 07:28 - General moderate distress - Eyes normal ocular movement - Neck trachea midline - Respiratory normal respiratory effort, clear to auscultation - Cardiovascular Rhythm: regular Heart Sounds: normal: S1, S2 - Integumentary normal turgor - Neurologic no disoriented, no combative - Musculoskeletal normal gait - Psychiatric oriented to time, oriented to person, oriented to place, speech is normal, memory intact Breast Exam; does not wear a bra, would be a small inspection: Bilateral 2 ptosis Palpation: Right breast: Multi positional exam fibrocystic changes no dominant masses or nodules of concern Right axilla: No adenopathy of concern Left breast: Multi positional exam fibrocystic changes no dominant masses or nodules of concern Left axilla: No adenopathy of concern Results Medical screening mammogram from 06-01-2024 and left breast diagnostic mammogram 06 06 24 personally reviewed and interpreted, discussed with Dr. Knapp from radiology there are a cluster of microcalcifications 4.6 x 3.7 mm tissue diagnosis is recommended Assessment and Plan Assessment: No group of microcalcifications left breast upper outer quadrant tissue diagnosis recommended Plan: Stereotactic core biopsy left breast Risk and benefits of the procedure discussed with the patient. Risk include but are not limited to bleeding, infection, reaction to the anesthetic. If adequate tissue acquisition were not obtained then further tissue acquisition may be ne cessary. The patient understands and wishes to proceed. CC: Dr. Bales
[2024-06-22 08:58] VITALS: BP 138/85; PULSE 73
--- NOTE | 2024-06-27 13:00 | MM ---
Risk Values: Tammie 5 year model risk: 2.3%. NCI Lifetime model risk: 6.0%. Prior Study Comparison: 05/11/2023 Bilateral MG 3D screening mammo w/cad, [facility]. 06/01/2024 Bilateral MG 3D screening mammo w/cad, [facility]. 06/06/2024 Left MG 3D work up w/cad , [facility]. Pathology Description: Marker Left Behind. Specimen Radiograph. Calcium Found: Yes Approach: CC FA Needle Type: Eviva Cores: 12 Skin Nicks: 1 Gauge: 9 The correct site was marked. A time out was performed. Following informed consent the patient was brought to the stereotactic core biopsy room. A sustain engineer film was obtained via an CC from above approach to identify the lesion in the left upper outer breast. The lesion is located at the upper outer position. The lesion was then targeted. The breast was prepped using Chlorhexidine. 20 cc of 1% lidocaine were used to anesthetize the area of concern. A 9 gauge vacuum-assisted core rotating biopsy needle was driven to the correct coordinates. A prefire film was obtained, needle was noted to be in the correct location.. The needle was driven to the correct coordinates. A post fire film was obtained. The needle was noted to be in the correct location. 12 core biopsies were obtained. A specimen radiograph was done. The specimen radiograph showed the calcifications of concern. The needle was removed leaving the sheath in place. A secure emmanuel top hat clip was inserted into the biopsy cavity through the sheath. Pressure was applied at the biopsy site for hemostasis. Steri-Strips were applied to the access site. The specimens were sent to the laboratory for pathologic analysis. The patient tolerated the procedure in stable condition and will follow-up with Dr. Duran. She was discharged in good condition with verbal and written instructions. Post procedure mammogram shows the clip to be in the correct location . [facility], , 06/22/2024 12:31 PM. Pathology Results: Result: High risk, Atypical lobular hyperplasia. Pathology and radiology were reviewed. Findings are concordant. LEFT BREAST, STEREOTACTIC CORE BIOPSY: Lobular neoplasia (ALH/LCIS) (see note). Proliferative fibrocystic change with apocrine metaplasia, columnar cell change, florid usual ductal hyperplasia, sclerosing adenosis and microcalcification. Fibroadenomatoid stromal hyperplasia present. Notes To characterize the process, immunostains are performed with appropriate controls on block A4. CK5/6 staining has focal positive staining within the areas of monotonous intraductal and acinar proliferation in question. Focal acinar and terminal duct/lobular units have negative staining with E-cadherin, which supports a diagnosis of lobular neoplasia. No pleomorphic cytologic atypia is seen within the area of lobular neoplasia (ALH/LCIS). This case was subjected to review at the daily intradepartmental pathology consensus conference on 06-26-2024, and the consensus opinion is in agreement with the assessment of lobular neoplasia (ALH/LCIS). Overall Assessment: High risk Management: Surgical Consultation of the left breast. Electronically signed and approved by: Abimbola Mike M.D.
== END ==
LOC: RADMAMWWP 07:17
PROVIDERS: ATTEND Surgery
DX: N60.22 Fibroadenosis of left breast (principal); D05.02 Lobular carcinoma in situ of left breast; R92.8 Other abnormal and inconclusive findings on diagnostic imaging of breast; N60.82 Other benign mammary dysplasias of left breast; F41.9 Anxiety disorder, unspecified; K21.9 Gastro-esophageal reflux disease without esophagitis; M19.90 Unspecified osteoarthritis, unspecified site; E78.00 Pure hypercholesterolemia, unspecified; F10.90 Alcohol use, unspecified, uncomplicated; Z80.0 Family history of malignant neoplasm of digestive organs; Z88.6 Allergy status to analgesic agent; Z98.890 Other specified postprocedural states; Z87.891 Personal history of nicotine dependence
CPT/HCPCS: 88305; 88342; 88341; 19081; A4648; J2003

== ENCOUNTER → 2024-06-22 | Outpatient (CLI) | payer MEDICARE, OTHER ==
[2024-06-22 07:58] VITALS: BP 112/77; PULSE 82; RESP 17; TEMP 97.3
== END ==
LOC: WWCWWP 07:15
PROVIDERS: ATTEND Surgery
DX: Z53.9 Procedure and treatment not carried out, unspecified reason (principal)

== ENCOUNTER → 2024-06-25 | Outpatient (CLI) | payer MEDICARE, OTHER ==
--- NOTE | 2024-06-25 10:28 | US ---
EXAMINATION TYPE: US abd limited kidneys/bladder DATE OF EXAM: 06/25/2024 COMPARISON: NONE CLINICAL INDICATION: Female, 74 years old with history of N28.9 DISORDER OF KIDNEY AND URETER, UNSPEC IFIED; renal disease, liver cyst TECHNIQUE: Grayscale and color Doppler imaging of the right upper quadrant was performed. FINDINGS: EXAM MEASUREMENTS: Liver Length: 15.2 cm Gallbladder Wall: 0.2 cm CBD: 0.5 cm Right Kidney: 10.4 x 2.9 x 4.8 cm Left Kidney: 9.2 x 4.2 x 5.[address] TECHNICIAN NOTES: Pancreas: Tail obscured by overlying bowel gas Liver: left lobe cystic area: 6.0x3.7x4.3cm, increased echogenicity of liver parenchyma Gallbladder: wnl Evidence for sonographic Terry's sign: No CBD: wnl Right Kidney: wnl Left Kidney: wnl Bladder: bilat jets seen, anechoic exam limited by bowel gas IMPRESSION: 1. No evidence for acute process. 2. Liver cyst with mild complexity along the edges suggesting septations. Consider liver mass protoc ol MRI if there is concern for malignancy. . [facility], , 06/25/2024 10:26 AM
== END | disposition home or self-care (01) ==
LOC: RADUSWWP 09:27
PROVIDERS: ATTEND Internal Medicine
DX: N28.9 Disorder of kidney and ureter, unspecified (principal); K76.89 Other specified diseases of liver
CPT/HCPCS: 76705; 76770

== ENCOUNTER → 2024-06-29 | Outpatient (CLI) | payer MEDICARE, OTHER ==
[2024-06-29 11:47] VITALS: BP 123/79; PULSE 74; RESP 16; TEMP 97.4
--- NOTE | 2024-06-29 11:51 | P.PN ---
Subjective Progress Note Date: 06/29/24 Principal diagnosis: ALH/LCIS left breast 06/29/24 Reason for Consult: Abnormal left breast mammogram Requesting physician: Jules Bales History of present illness: 06-22-24 Kae is a 74-year-old female seen in consultation for Dr. Bales regarding an abnormal left breast mammogram. She had a bilateral screening mammogram on 06-01-2024. This revealed some grouped calcifications in the upper outer quadrant of the left breast. A diagnostic left breast mammogram was recommended. No lesions of concern were noted in the right breast. This was personally reviewed and interpreted and discussed with radiology Dr. Knapp. The patient underwent a diagnostic left breast mammogram on 06 06 24 this revealed an indeterminate cluster of microcalcifications upper outer left breast 6.3 cm from the nipple. This spanned 4.6 x 3.7 mm. Stereotactic core biopsy was recommended. This was on a routine mammogram. The patient does not feel any new lumps masses or nodules of concern in either breast. She is not complaining of any nipple discharge or skin changes. She has not had any recent trauma or infection in the breast. Has had a left breast needle biopsy in the past which was benign. 06-29-24 Patient is status post stereotactic core biopsy of the left breast on 06-22-2024. Pathology revealed ALH/LCIS. This was personally reviewed with Dr. Blackwell and the entire area of concern is believed to have been removed. She tolerated the procedure without difficulty. Caffeine: 2 cups/day nicotine: stopped at 22, used to smoke 2 cigarettes day for 1 year chocolate: occasional BCP: used for 10 years hormones: hormone replacement therapy cream Dr. Bales used for decades; topical for hot flashes; (estradiol 1.5, estriol 6, Prog 100, testestorone 1, Dhea 2., Pregnenolone 10) C-Hrt cream 1 ml daily she uses 1/2 ml Alan life time risk: 34.7% Family History: mother: colon cancer brother: prostate cancer, recurrent treated with injections, SCC of his neck; smoker Hormonal History: menarche: 15 G0 menopause: 52; topical hormones for 20 years Surgical History: 1. ventral hernia 2. endometriosis/done via vaginal area? Medical History: 1. anxiety 2. GERD 3. high cholesterol 4. anxiety 5. osteoarthritis Social History: nicotine: as above alcohol: daily, liquor drugs: none Review of Systems - Constitutional Denies fever, Denies weight loss - EENT EENT Comment(s): lens implant left eye, cataract surgery Eyes: bilateral dry eye, denies blurred vision Ears: deny: decreased hearing, tinnitus Ears, nose, mouth and throat: Denies dysphagia - Breasts bilateral: as per HPI - Cardiovascular Denies chest pain, Denies shortness of breath - Respiratory Denies cough - Gastrointestinal Reports as per HPI - Genitourinary Genitourinary: Denies dysuria, Denies hematuria Menstruation: Reports postmenopausal - Musculoskeletal Reports as per HPI - Integumentary Denies rash, Denies unusual bruising - Neurological Denies headaches, Denies syncope - Psychiatric Reports anxiety - Endocrine Reports as per HPI - Hematologic/Lymphatic Denies easy bleeding, Denies easy bruising - Allergic/Immunologic Reports as per HPI, Reports seasonal allergies Past Medical History Past Medical History: Hyperlipidemia, Osteoarthritis (OA) History of Any Multi-Drug Resistant Organisms: None Reported Past Surgical History: Hernia Repair Additional Past Surgical History / Comment(s): Left breast biopsy. Past Anesthesia/Blood Transfusion Reactions: No Reported Reaction Past Psychological History: Anxiety Smoking Status: Never smoker Past Alcohol Use History: Daily Additional Past Alcohol Use History / Comment(s): one- two drink daily Past Drug Use History: None Reported Medications and Allergies Home Medications Medication Instructions Recorded Confirmed Type Acetaminophen [Tylenol] 3,900 mg PO DAILY 06/11/24 06/22/24 History Atorvastatin [Lipitor] 20 mg PO DAILY 06/11/24 06/22/24 History Boswellia Cam/Turmeric Xt 500 mg PO DAILY 06/11/24 06/22/24 History [Synovx Relief Softgel] Cyanocobalamin (Vitamin B-12) 5,000 mcg PO DAILY 06/11/24 06/11/24 History [Vitamin B-12] Flunisolide Nasal [place] [Nasalide] 2 spray EA NOSTRIL DAILY 06/11/24 06/22/24 History Glucosamine HCl/Chondroitin Garcia 1 each PO DAILY 06/11/24 06/22/24 History [Glucosamine-Chondroitin Cap] Multivitamins, Thera [Multivitamin 1 tab PO DAILY 06/11/24 06/11/24 History (formulary)] clonazePAM [KlonoPIN] 0.5 mg PO BID 06/11/24 06/22/24 History cycloSPORINE 0.05% OPHTH SOLN 1 applicator BOTH EYES Q12H 06/11/24 06/22/24 History [Restasis] Allergies Allergy/AdvReac Type Severity Reaction Status Date / Time celecoxib [From Celebrex] Allergy Rash/Hives Verified 06/22/24 07:25 Objective - Constitutional General appearance: Present: cooperative - EENT Eyes: Present: EOMI ENT: Present: hearing grossly normal - Respiratory Respiratory: bilateral: CTA - Cardiovascular Rhythm: regular Heart sounds: normal: S1, S2 - Integumentary Integumentary Comment(s): biopsy site left breast clean and dry mild echymosis no infection Integumentary: Present: normal turgor - Musculoskeletal Musculoskeletal: Present: gait normal - Psychiatric Psychiatric: Present: A&O x's 3, appropriate affect, intact judgment & insight - Additional findings Additional findings: Breast Exam; from 06-22-24 does not wear a bra, would be a small inspection: Bilateral 2 ptosis Palpation: Right breast: Multi positional exam fibrocystic changes no dominant masses or nodules of concern Right axilla: No adenopathy of concern Left breast: Multi positional exam fibrocystic changes no dominant masses or nodules of concern; Left axilla: No adenopathy of concern Assessment and Plan Assessment: Impression: Patient's status post left breast stereotactic core biopsy ALH/LCIS; area of concern completely removed Patient has been using hormone cream Plan: We have discussed in detail treatment options. Options are regarding the site of the ALH/LCIS and the overall increased risk for development of breast cancer. Secondary to the fact that radiographically the area of concern was removed at our core biopsy I have not recommended a needle Loke and resection. Risk reduction strategies include: 1. Close surveillance alternating MRI and mammogram every 6 months we would like to have this done 2. At this time she is going to stop using her hormone cream until she talks to medical oncology and consider chemoprophylaxis 3. We have discussed surgical prophylaxis with bilateral mastectomy although I have not recommended this The patient understands these options and at the present time we are going to do close surveillance alternating MRI and mammogram every 6 months she should have a bilateral breast MRI in 6 months with an appointment at that time She she is going to have an appointment with medical oncology and until she meets with them she will stop using her hormone cream If she has any further questions or concerns she will contact us prior to 6 months. CC: Dr. Bales
== END ==
LOC: WWCWWP 10:53
PROVIDERS: ATTEND Surgery
DX: Z12.31 Encounter for screening mammogram for malignant neoplasm of breast (principal); N60.92 Unspecified benign mammary dysplasia of left breast; Z98.890 Other specified postprocedural states; Z88.6 Allergy status to analgesic agent

== ENCOUNTER → 2024-07-25 | Outpatient (CLI) | payer MEDICARE, OTHER ==
--- NOTE | 2024-07-26 08:24 | MR ---
EXAMINATION TYPE: MR liver wo/w con DATE OF EXAM: 07/25/2024 6:34 PM COMPARISON: Recent limited abdominal ultrasound June 25, 2024 CLINICAL INDICATION: Female, 74 years old with history of K76.89 HEPATIC CYST, hepatic cyst, f/u IV Contrast: 6ml cc Gadobutrol (None if empty) CONTRAST: Standard multiplanar, multisequence MRI departmental protocol images were obtained without contrast a nd with 6ml mL intravenous Gadobutrol gadolinium contrast. Imaging of the abdomen focus in the liver . FINDINGS: Liver: Liver is normal in size. Corresponding to ultrasound there is a thin-walled cyst in the left h epatic lobe measuring 5.0 cm transversely by 3.8 cm AP diameter by 3.6 cm craniocaudal dimension on a xial image 44 and coronal image 8. Dynamic postcontrast imaging shows no suspicious nodular enhanceme nt. There is additional simple tiny 4 mm thin-walled cyst in the liver coronal image [address] er of liver is unremarkable. No internal gallstones. No biliary dilatation. Other: Lung bases are grossly clear. The spleen and both kidneys are unremarkable. No adrenal masses. Moderately distended stomach. No abnormal small or large bowel dilatation. No AAA. Osseous structure s are intact. IMPRESSION: There is simple appearing 5.0 cm thin-walled cyst or less likely cystic lesion in the lef t hepatic lobe confirmed. A benign etiology is strongly suspected. [facility], , 07/26/2024 8:22 AM
== END | disposition home or self-care (01) ==
LOC: RADMRIMAIN 17:43
PROVIDERS: ATTEND Internal Medicine
DX: K76.89 Other specified diseases of liver (principal)
CPT/HCPCS: 74183; A9585

== ENCOUNTER 2024-09-16 00:53 | Inpatient (IN) | payer MEDICARE, OTHER ==
--- NOTE | 2024-09-16 01:25 | ED ---
Chest Pain HPI - General Source: patient Mode of arrival: ambulatory Limitations: no limitations - History of Present Illness MD Complaint: chest pain Onset/Timin -: hour(s) Pain Location: left chest Pain Radiation: LUE, neck Severity scale (1-10): 5 Quality: aching Consistency: constant, intermittent Anginal Symptoms: nausea, diaphoresis, other Other Symptoms: other (Lightheadedness) Treatments Prior to Arrival: none <Tony Patel - Last Filed: 09/16/24 01:23> - General Source: patient, RN notes reviewed, old records reviewed Mode of arrival: ambulatory Limitations: no limitations - History of Present Illness Complaint: chest pain -: hour(s) Pain Location: left chest Pain Radiation: LUE, jaw/teeth Severity scale (1-10): 8 Quality: aching Consistency: constant Anginal Symptoms: diaphoresis Treatments Prior to Arrival: none <Kamron Fox - Last Filed: 09/17/24 02:33> - General Chief Complaint: Chest Pain Stated Complaint: left arm pain hand numbness Time Seen by Provider: 09/16/24 01:06 - History of Present Illness Initial Comments: This is a 74-year-old female to the ER for evaluation of sudden onset left sided chest pain starting at 10 PM tonight she has had 2 episodes of similar pain this week both on Tuesday and earlier this morning. History of high cholesterol. No cardiac testing within the last 15 years. Patient also experienced some diaphoresis with anxiety and shortness of breath (Kamron Fox) - Related Data Home Medications Medication Instructions Recorded Confirmed Atorvastatin [Lipitor] 20 mg PO HS 06/11/24 09/16/24 clonazePAM [KlonoPIN] 0.5 mg PO BID 06/11/24 09/16/24 cycloSPORINE 0.05% OPHTH SOLN 1 applicator BOTH EYES Q12H 06/11/24 09/16/24 [Restasis] Azelastine HCl [Astelin Nasal 1 spray EA NOSTRIL BID 09/16/24 09/16/24 [place]] Hormone Replacement Cream 1 ml TOPICAL DAILY 09/16/24 09/16/24 clonazePAM [KlonoPIN] 0.25 mg PO DAILY PRN 09/16/24 09/16/24 Allergies Allergy/AdvReac Type Severity Reaction Status Date / Time celecoxib [From Celebrex] Allergy Rash/Hives Verified 09/16/24 13:36 gluten AdvReac Diarrhea Verified 09/16/24 13:36 Review of Systems ROS Other: All systems not noted in ROS Statement are negative. <Tony Patel - Last Filed: 09/16/24 01:23> ROS Other: All systems not noted in ROS Statement are negative. <SelinaeuniceKamron Porfirio - Last Filed: 09/17/24 02:33> ROS Statement: Those systems with pertinent positive or pertinent negative responses have been documented in the HPI. Past Medical History Past Medical History: Hyperlipidemia, Osteoarthritis (OA) History of Any Multi-Drug Resistant Organisms: None Reported Past Surgical History: Hernia Repair Additional Past Surgical History / Comment(s): Left breast biopsy. Past Anesthesia/Blood Transfusion Reactions: No Reported Reaction Past Psychological History: Anxiety Smoking Status: Never smoker Past Alcohol Use History: Daily Past Drug Use History: None Reported <Tony Patel - Last Filed: 09/16/24 01:23> General Exam Limitations: no limitations General appearance: alert, in no apparent distress Head exam: Present: atraumatic, normocephalic, normal inspection Eye exam: Present: normal appearance, PERRL, EOMI. Absent: scleral icterus, conjunctival injection, periorbital swelling ENT exam: Present: normal exam, mucous membranes moist Neck exam: Present: normal inspection. Absent: tenderness, meningismus, lymphadenopathy Respiratory exam: Present: normal lung sounds bilaterally. Absent: respiratory distress, wheezes, rales, rhonchi, stridor, accessory muscle use, decreased breath sounds, prolonged expiratory Cardiovascular Exam: Present: regular rate, normal rhythm, normal heart sounds. Absent: systolic murmur, diastolic murmur, rubs, gallop, clicks GI/Abdominal exam: Present: soft, normal bowel sounds. Absent: distended, tenderness, guarding, rebound, rigid Extremities exam: Present: normal inspection, full ROM, normal capillary refill. Absent: tenderness, pedal edema, joint swelling, calf tenderness Back exam: Present: normal inspection, muscle spasm (Positive left trapezius muscle spasm and point tenderness with reproducible left upper extremity paresthesia with deep palpation) Neurological exam: Present: alert, oriented X3, CN II-XII intact Psychiatric exam: Present: normal affect, normal mood Skin exam: Present: warm, dry, intact, normal color. Absent: rash <Tony Patel - Last Filed: 09/16/24 01:23> General appearance: alert, in no apparent distress Head exam: Present: atraumatic, normocephalic, normal inspection Eye exam: Present: normal appearance, PERRL, EOMI. Absent: scleral icterus, conjunctival injection, periorbital swelling ENT exam: Present: normal exam, mucous membranes moist Neck exam: Present: normal inspection. Absent: tenderness, meningismus, lymphadenopathy Respiratory exam: Present: normal lung sounds bilaterally. Absent: respiratory distress, wheezes, rales, rhonchi, stridor Cardiovascular Exam: Present: regular rate, normal rhythm, normal heart sounds. Absent: systolic murmur, diastolic murmur, rubs, gallop, clicks GI/Abdominal exam: Present: soft, normal bowel sounds. Absent: distended, tenderness, guarding, rebound, rigid Extremities exam: Present: normal inspection, full ROM, normal capillary refill. Absent: tenderness, pedal edema, joint swelling, calf tenderness Back exam: Present: normal inspection Neurological exam: Present: alert, oriented X3, CN II-XII intact Psychiatric exam: Present: normal affect, normal mood Skin exam: Present: warm, dry, intact, normal color. Absent: rash <Kamron Fox - Last Filed: 09/17/24 02:33> Course <Kamron Fox - Last Filed: 09/17/24 02:33> Vital Signs 09/16/24 09/16/24 09/16/24 00:56 01:33 02:03 Temperature 98.2 F Pulse Rate 89 84 Pulse Rate [ 82 Left Supine Radial] Respiratory 20 18 Rate Blood Pressure 134/71 128/92 O2 Sat by Pulse 98 96 Oximetry - Reevaluation(s) Reevaluation #1: 09/16/24 01:46 Medical records reviewed (Kamron Fox) Reevaluation #2: 09/16/24 01:46 Patient has multiple EKGs here in the ER, patient has nitro given improvement in pain (Kamron Fox) Reevaluation #3: 09/16/24 01:46 Patient informed of results questions answered (Roskopp,Kamron B) Reevaluation #4: Was pt. sent in by a medical professional or institution (, [facility], [employer], urgent care, hospital, or [facility]...) When possible be specific @ -no Did you speak to anyone other than the patient for history (EMS, parent, family, police, friend...)? What history was obtained from this source @ -no Did you review nursing and triage notes (agree or disagree)? Why? @ -agree Are old charts reviewed (outside hosp., previous admission, EMS record, old EKG, old radiological studies, urgent care reports/EKG's, [facility] records)? Report findings @ -yes Differential Diagnosis (chest pain, altered mental status, abdominal pain women, abdominal pain men, vaginal bleeding, weakness, fever, dyspnea, syncope, headache, dizziness, GI bleed, back pain, seizure, CVA, palpatations, mental health, musculoskeletal)? @ -prior EKG interpreted by me (3pts min.). @ -yes X-rays interpreted by me (1pt min.). @ -yes negative for acute disease CT interpreted by me (1pt min.). @ -no U/S interpreted by me (1pt. min.). @ -no What testing was considered but not performed or refused? (CT, X-rays, U/S, labs)? Why? @ -none What meds were considered but not given or refused? Why? @ -none Did you discuss the management of the patient with other professionals (professionals i.e. LORIN Tucker, [employer]IVER, lab, RT, psych nurse, hospice social worker, grain weigher, teacher, electoral officer, transplant case manager)? Give summary @ -no Was smoking cessation discussed for >3mins.? @ -no Was critical care preformed (if so, how long)? @ -yes31 Were there social determinants of health that impacted care today? How? (Homelessness, low income, unemployed, alcoholism, drug addiction, transportation, low edu. Level, literacy, decrease access to med. care, [place] [facility], rehab)? @ -none Was there de-escalation of care discussed even if they declined (Discuss DNR or withdrawal of care, Hospice)? DNR status @ -no What co-morbidities impacted this encounter? (DM, HTN, Smoking, COPD, CAD, Cancer, CVA, ARF, Chemo, Hep., AIDS, mental health diagnosis, sleep apnea, morbid obesity)? @ -none Was patient admitted / discharged? Hospital course, mention meds given and route, prescriptions, significant lab abnormalities, going to OR and other pertinent info. @ - 74 female will be admitted for ST elevated MO to the [employer] Admitted Undiagnosed new problem with uncertain prognosis? @ -no Drug Therapy requiring intensive monitoring for toxicity (Heparin, Nitro, Insulin, Cardizem)? @ -no Were any procedures done? @ -no Diagnosis/symptom? @ -STEMI Acute, or Chronic, or Acute on Chronic? @ -Acute Uncomplicated (without systemic symptoms) or Complicated (systemic symptoms)? @ -Complicated Side effects of treatment? @ -no Exacerbation, Progression, or Severe Exacerbation? @ -exacerbation Poses a threat to life or bodily function? How? (Chest pain, USA, MO, pneumonia, PE, COPD, DKA, ARF, appy, cholecystitis, CVA, Diverticulitis, Homicidal, Suicidal, threat to staff... and all critical care pts) @ -yes acute ACS (Kamron Fox) Reevaluation #5: Differential Chest Pain: Stable Angina, Unstable Angina, STEMI, NSTEMI Aortic Dissection, Pneumothorax, Musculoskeletal, Esophageal Spasm GERD, Cholecystitis, Pancreatitis, Zoster, this is not meant to be an all-inclusive list. (Kamron Fox) - Consultations Consultation #1: Spoke with sound who agrees to admit this patient (Kamron Fox) Chest Pain MDM <Tony Patel - Last Filed: 09/16/24 01:23> <Kamron Fox - Last Filed: 09/17/24 02:33> - MDM Was pt. sent in by a medical professional or institution (, PA, [employer]IVER, urgent care, hospital, or [facility]...) When possible be specific @ -[No] Did you speak to anyone other than the patient for history (EMS, parent, family, police, friend...)? What history was obtained from this source @ -[No] Did you review nursing and triage notes (agree or disagree)? Why? @ -[I reviewed and agree with nursing and triage notes] Were old charts reviewed (outside hosp., previous admission, EMS record, old EKG, old radiological studies, urgent care reports/EKG's, [facility] records)? Report findings @ -[No old charts were reviewed] Differential Diagnosis (chest pain, altered mental status, abdominal pain women, abdominal pain men, vaginal bleeding, weakness, fever, dyspnea, syncope, headache, dizziness, GI bleed, back pain, seizure, CVA, palpatations, mental health, musculoskeletal)? @ -Differential Chest Pain: Stable Angina, Unstable Angina, STEMI, NSTEMI Aortic Dissection, Pneumothorax, Musculoskeletal, Esophageal Spasm GERD, Cholecystitis, Pancreatitis, Zoster, this is not meant to be an all-inclusive list. EKG interpreted by me (3pts min.). @ -[As above] X-rays interpreted by me (1pt min.). @ -[None done] CT interpreted by me (1pt min.). @ -[None done] U/S interpreted by me (1pt. min.). @ -[None done] What testing was considered but not performed or refused? (CT, X-rays, U/S, labs)? Why? @ -[None] What meds were considered but not given or refused? Why? @ -[None] Did you discuss the management of the patient with other professionals (professionals i.e. , PA, [employer]IVER, lab, RT, psych nurse, hospice social worker, grain weigher, teacher, electoral officer, transplant case manager)? Give summary @ -[No] Was smoking cessation discussed for >3mins.? @ -[No] Was critical care preformed (if so, how long)? @ -[No] Were there social determinants of health that impacted care today? How? (Homelessness, low income, unemployed, alcoholism, drug addiction, transportation, low edu. Level, literacy, decrease access to med. care, [place] [facility], rehab)? @ -[No] Was there de-escalation of care discussed even if they declined (Discuss DNR or withdrawal of care, Hospice)? DNR status @ -[No] What co-morbidities impacted this encounter? (DM, HTN, Smoking, COPD, CAD, Cancer, CVA, ARF, Chemo, Hep., AIDS, mental health diagnosis, sleep apnea, morbid obesity)? @ -[None] Was patient admitted / discharged? Hospital course, mention meds given and route, prescriptions, significant lab abnormalities, going to OR and other pertinent info. @ -[hospital course] Undiagnosed new problem with uncertain prognosis? @ -[No] Drug Therapy requiring intensive monitoring for toxicity (Heparin, Nitro, Insulin, Cardizem)? @ -[No] Were any procedures done? @ -[No] Diagnosis/symptom? @ -[default] Acute, or Chronic, or Acute on Chronic? @ -Acute Uncomplicated (without systemic symptoms) or Complicated (systemic symptoms)? @ -Complicated Side effects of treatment? @ -[No] Exacerbation, Progression, or Severe Exacerbation? @ -[No] Poses a threat to life or bodily function? How? (Chest pain, USA, MO, pneumonia, PE, COPD, DKA, ARF, appy, cholecystitis, CVA, Diverticulitis, Homicidal, Suicidal, threat to staff... and all critical care pts) @ -[No] (Tony Patel) 74 female will be admitted for ST elevated MO to the [employer] (Kamron Fox) Critical Care Time Critical Care Time: Yes Total Critical Care Time: 31 <Kamron Fox - Last Filed: 09/17/24 02:33> Disposition <Tony Patel - Last Filed: 09/16/24 01:23> Is patient prescribed a controlled substance at d/c from ED?: No Time of Disposition: 01:45 <Kamron Fox - Last Filed: 09/17/24 02:33> Clinical Impression: Chest pain, ST elevation myocardial infarction (STEMI) Disposition: ADMITTED IP TO THIS HOSP Condition: Serious
[2024-09-16] MEDS ORDERED: HEPARIN SODIUM 1,000 UN/ML (10ML VL) IV PRN (01:34)
[2024-09-16 01:38] LABS: Basophils # (A) 0.05 10*3/uL (0.00-0.10); Basophils % (A) 0.8 %; Eosinophils # (A) 0.11 10*3/uL (0.04-0.35); Eosinophils % (A) 1.8 %; HCT 40.5 % (37.2-46.3); HGB 13.5 g/dL (12.0-15.0); Lymphocytes # (A) 2.15 10*3/uL (0.90-5.00); Lymphocytes % (A) 35.1 %; MCH 29.7 pg (27.0-32.0); MCHC 33.3 g/dL (32.0-37.0); MCV 89.0 fL (80.0-97.0); Monocytes # (A) 0.63 10*3/uL (0.20-1.00); Monocytes % (A) 10.3 %; Neutrophils # (A) 3.16 10*3/uL (1.80-7.70); Neutrophils % (A) 51.7 %; Platelet Count 249 10*3/uL (140-440); RBC 4.55 10*6/uL (4.10-5.20); RDW 13.0 % (11.5-14.5); WBC 6.12 10*3/uL (4.50-10.00)
[2024-09-16] MEDS: NITROGLYCERIN SL TABS 0.4 MG TAB SUBLINGUAL STA (01:38)
[2024-09-16] MEDS: HEPARIN SODIUM 1,000 UN/ML (10ML VL) IV ONE (01:39)
[2024-09-16] MEDS: ASPIRIN 81 MG PO STA (01:41)
[2024-09-16] MEDS ORDERED: MORPHINE SULFATE 4 MG/ML SYRINGE IV PRN (01:43)
[2024-09-16] MEDS: ATORVASTATIN 80 MG TAB PO STA (01:45)
[2024-09-16 02:01] LABS: INR 0.9 (<1.2); Partial Thromboplastin Time 22.9 sec (22.0-30.0); Prothrombin Time 10.2 sec (10.0-12.5)
--- NOTE | 2024-09-16 02:01 | XR ---
EXAM: XR Chest, 1 View CLINICAL HISTORY: ITS.REASON XR Reason: Chest Pain TECHNIQUE: Frontal view of the chest. COMPARISON: No relevant prior studies available. FINDINGS: Lungs: No consolidation. Pleural space: No significant pleural effusion. No pneumothorax. Heart: No cardiomegaly or pulmonary vascular congestion. Bones/joints: No acute fracture. No dislocation. IMPRESSION: No evidence of acute cardiopulmonary disease.
[2024-09-16 02:03] LABS: ALT 30 U/L (4-34); AST 33 U/L (14-36); African American GFR (CKD) 49 (>60 ml/min/1.73 sqM); Albumin 4.4 g/dL (3.5-5.0); Alkaline Phosphatase 81 U/L (38-126); Anion Gap 11 mmol/L; Blood Urea Nitrogen 20 mg/dL (7-17); Calcium 9.8 mg/dL (8.4-10.2); Carbon Dioxide 22 mmol/L (22-30); Chloride 106 mmol/L (98-107); Creatine Kinase 120 U/L (30-135); Glucose 92 mg/dL (74-99); Magnesium 2.0 mg/dL (1.6-2.3); Non-African American GFR(CKD) 42 (>60 ml/min/1.73 sqM); Potassium 4.5 mmol/L (3.5-5.1); Sodium 139 mmol/L (137-145); Total Protein 6.8 g/dL (6.3-8.2)
[2024-09-16] MEDS: SODIUM CHLORIDE 0.9% 1,000 ML IV ONE (02:10)
--- NOTE | 2024-09-16 02:14 | P.CRDCN ---
History of Present Illness Consult date: 09/16/24 History of present illness: HISTORY OF PRESENTING ILLNESS: 74-year-old with no reported significant past cardiovascular history, or history of stroke, bleeding diathesis or cancer Does have a history of dyslipidemia on statins. Started having left upper extremity heaviness and some chest heaviness 09/15/2024 evening. She slept and woke up around midnight with similar symptoms which were not getting better therefore they decided to come to the ER. She had similar symptoms on Tuesday which subsided with resting and sleeping. She denies any smoking or recreation al drug use. She does use alcohol approximately 20 mL of liquor every day. Denies any family history premature coronary artery sudden cardiac .................................................. ................................................................................ ............ [place] Vitals: 128/92, heart rate 84 [facility] Labs: Hb 13, BUN 20, creatinine 1.08, EKG: Sinus rhythm. ST elevation with hyperacute T waves in V2 V3 with some reciprocal changes in inferior lead Pertient Imaging: No significant consolidation or concession suggestive of fluid overload or pneumonia. .... ................................................................................ .......................................................... REVIEW OF SYSTEMS: 14 point review of system is negative except what is mentioned above in HPI. ................................................................. ............................................................................. PHYSICAL EXAMINATION: Neck: Brisk carotid upstroke, no jugular venous distention. Lungs: Clear to auscultation. Heart: Regular rate and rhythm, S1-S2, , no murmur or rub. Abdomen: Soft nontender, positive bowel sounds. Extremities: No edema, intact distal pulses. Neuro: Alert, oritented, no focal deficits. Detailed neuro exam was not performed. .......................................................................... .................................................................... ASSESSMENT: # Anterior STEMI # Dyslipidemia # Daily alcohol use PLAN: Plan for emergent cardiac catheterization. Further recommendations to follow Eitan Hernandez MD, FAC, VI Past Medical History Past Medical History: Hyperlipidemia, Osteoarthritis (OA) History of Any Multi-Drug Resistant Organisms: None Reported Past Surgical History: Hernia Repair Additional Past Surgical History / Comment(s): Left breast biopsy. Past Anesthesia/Blood Transfusion Reactions: No Reported Reaction Past Psychological History: Anxiety Smoking Status: Never smoker Past Alcohol Use History: Daily Past Drug Use History: None Reported Medications and Allergies Home Medications Medication Instructions Recorded Confirmed Type Acetaminophen [Tylenol] 3,900 mg PO DAILY 06/11/24 06/29/24 History Atorvastatin [Lipitor] 20 mg PO DAILY 06/11/24 06/29/24 History Boswellia Cam/Turmeric Xt 500 mg PO DAILY 06/11/24 06/29/24 History [Synovx Relief Softgel] Cyanocobalamin (Vitamin B-12) 5,000 mcg PO DAILY 06/11/24 06/29/24 History [Vitamin B-12] Flunisolide Nasal [place] [Nasalide] 2 spray EA NOSTRIL DAILY 06/11/24 06/29/24 History Glucosamine HCl/Chondroitin Garcia 1 each PO DAILY 06/11/24 06/29/24 History [Glucosamine-Chondroitin Cap] Multivitamins, Thera [Multivitamin 1 tab PO DAILY 06/11/24 06/29/24 History (formulary)] clonazePAM [KlonoPIN] 0.5 mg PO BID 06/11/24 06/29/24 History cycloSPORINE 0.05% OPHTH SOLN 1 applicator BOTH EYES Q12H 06/11/24 06/29/24 History [Restasis] Allergies Allergy/AdvReac Type Severity Reaction Status Date / Time celecoxib [From Celebrex] Allergy Rash/Hives Verified 09/16/24 01:00 Physical Exam Vitals: Vital Signs Temp Pulse Pulse Resp BP Pulse Ox 09/16/24 02:03 84 18 128/92 96 09/16/24 01:33 82 09/16/24 00:56 98.2 F 89 20 134/71 98 Intake and Output 09/15/24 09/15/24 09/16/24 14:59 22:59 06:59 Other: Weight 58.967 kg Results 09/16/24 01:28 09/16/24 01:28 Cardiac Enzymes 09/16/24 09/16/24 Range/Units 01:28 01:28 AST 33 (14-36) U/L Troponin I <0.012 (0.000-0.034) ng/mL Coagulation 09/16/24 Range/Units 01:28 PT 10.2 (10.0-12.5) sec APTT 22.9 (22.0-30.0) sec CBC 09/16/24 Range/Units 01:28 WBC 6.12 (4.50-10.00) 10*3/uL RBC 4.55 (4.10-5.20) 10*6/uL Hgb 13.5 (12.0-15.0) g/dL Hct 40.5 (37.2-46.3) % Plt Count 249 (140-440) 10*3/uL Comprehensive Metabolic Panel 09/16/24 Range/Units 01:28 Sodium 139 (137-145) mmol/L Potassium 4.5 (3.5-5.1) mmol/L Chloride 106 (98-107) mmol/L Carbon Dioxide 22 (22-30) mmol/L BUN 20 H (7-17) mg/dL Creatinine 1.28 H (0.52-1.04) mg/dL Glucose 92 (74-99) mg/dL Calcium 9.8 (8.4-10.2) mg/dL AST 33 (14-36) U/L ALT 30 (4-34) U/L Alkaline Phosphatase 81 (38-126) U/L Total Protein 6.8 (6.3-8.2) g/dL Albumin 4.4 (3.5-5.0) g/dL Current Medications Generic Name Dose Route Start Last Admin Trade Name Freq PRN Reason Stop Dose Admin Aspirin 325 mg 09/17/24 09:00 Aspirin 325 Mg Tab PO DAILY [facility] Atorvastatin Calcium 80 mg 09/16/24 09:00 Atorvastatin 80 Mg Tab PO DAILY [facility] Heparin Sodium (Porcine) 0 unit 09/16/24 01:34 Heparin Sodium 1,000 Un/Ml (10ml Vl) IV PER PROTOCOL PRN Low PTT Protocol Heparin Sodium/Sodium Chloride 250 mls @ 7.076 mls/hr 09/16/24 01:45 25,000 unit/ Sodium Chloride IV .Q24H [facility] Protocol 12 UNITS/KG/HR Metoprolol Tartrate 25 mg 09/16/24 09:00 Metoprolol Tartrate 25 Mg Tab PO BID [facility] Morphine Sulfate 4 mg 09/16/24 01:43 Morphine Sulfate 4 Mg/Ml Syringe IV Q4HR PRN Chest Pain Intake and Output 09/15/24 09/15/24 09/16/24 14:59 22:59 06:59 Other: Weight 58.967 kg Patient Weight 09/16/24 06:59 Weight 58.967 kg 09/16/24 01:28 09/16/24 01:28
[2024-09-16] MEDS: LIDOCAINE 1% INJ 10MG/ML (20 ML MDV) SQ ONE (02:22)
[2024-09-16] MEDS: VERAPAMIL SYRINGE (5 MG/10 ML) INTRAARTER ONE (02:24)
[2024-09-16] MEDS: MIDAZOLAM 2 MG/2 ML VIAL IVP ONE (02:25)
[2024-09-16] MEDS: fentaNYL (PF) 50 MCG/1 ML VIAL IVP ONE (02:26)
[2024-09-16] MEDS: IOPAMIDOL-370 100ML BTL INJ ONE (02:49)
[2024-09-16] MEDS ORDERED: RX INFO: IV CONTRAST WAS GIVEN 1 EACH MISC MISCELLANE PRN (02:53)
[2024-09-16] MEDS: FUROSEMIDE 10 MG/ML 4 ML VIAL IVP ONE (02:57)
--- NOTE | 2024-09-16 03:03 | P.CARDCATH ---
Date of Procedure: 09/16/24 Description of Procedure: DIAGNOSTIC CORONARY ANGIOGRAPHY and LEFT HEART CATH REPORT PROCEDURES PERFORMED: Left heart catheterization Selective coronary angiography Moderate conscious sedation 17 mins Right radial access INDICATION: Anterior STEMI BRIEF HPI: 74-year-old with history of dyslipidemia no other prior cardiovascular history presented to the hospital because of left arm pain. Admission ECG shows [address] elevation in V1, 2.[address] elevations in V2 V3 with hyperacute T waves along with reciprocal ST depressions in inferior lead. After receiving nitroglycerin her EKG did normalize a bit. For acute STEMI she was taken to [facility] CONSENT: I have explained the procedural steps of above-mentioned procedures in layman's terms to the patient. I discussed the risks (including but not limited to stroke, emergent vascular or cardiac surgery or ), benefits and alternative therapies for the above-mentioned procedure. I discussed the risks of sedation/analgesia and blood product administration (if indicated). The patient has indicated understanding and acceptance of these risks. Conscious Sedation: Patient's ECG, heart rate, blood pressure, pulse oximetry were monitored throughout the duration of procedure under my direct supervision. 1 mg Versed and 50 mcg Fentanyl were used for induction of moderate conscious sedation. Total duration of moderate concious sedation 17 minutes. PROCEDURAL DETAILS: Patient was prepped and draped in sterile fashion. 1% lidocaine was infiltrated over the right radial artery. Right radial access was obtained via modified seldinger technique. . Medications: 5mg of verapamil was administed in the radial sheet. 4000 Units of Heparin was administed in the ER Wires and Catheter used: J wire was advanced under fluroscopy to get to aortic root. 5 ugandan JR 4 diagnostic catheter was utilized obtain left ventricular pressure and pressure gradint across aortic valve. 5 ugandan JR 4 diagnostic catheter was used to selectively engage the right coronary ostium. 5 ugandan JL 3.5 diagnostic catheter was utilized to selectively engage the left coronary ostium. Angiographic images were reviewed in detail. Catheter and wire were removed. Radial sheet was flushed. The right radial sheath was removed and a TR band was placed. Patent hemostasis was achieved. The patient tolerated the procedure well. Patient was transported back to the post catheterization holding area in stable condition. TECHNICAL DETAILS Total radiation: 104 mGy Total fluro time: 5.4 minutes Total contrast used: Isovue 75 mL Complications: [none] Estimated Blood loss: less than 15 ml HEMODYNAMICS: Aortic Pressure: 140/80 mmHg. LV pressure: 148/15 mmHg. LVEDP 30 mmHg. There was no significant gradient across the aortic valve. SELECTIVE CORONARY ARTERIOGRAPHY: LEFT MAIN: The left main is short and large caliber vessel. It bifurcates into the LAD and circumflex. Left main appears angiographically normal. LEFT ANTERIOR DESCENDING CORONARY ARTERY: LAD is a moderate caliber vessel very tortuous and reaches up to the apex. 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 Mid LAD gives rise to a diagonal branch which appears angiographically patent, it is moderate caliber very tortuous. LEFT CIRCUMFLEX CORONARY ARTERY: It is nondominant vessel. LCx is moderate caliber, very tortuous and appears angiographically patent. LCx gives rise to OM branch which is very tortuous and appears angiographically patent. RIGHT CORONARY ARTERY: RCA has a high anterior takeoff. RCA is large caliber and dominant vessel. Proximal mid and distal RCA appears to have diffuse 30 to 40% luminal irregularity. Distal RCA gives rise to PDA and PL branch. 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 because of elevated LVEDP Nitro drip at 5. If blood pressure tolerates increase it to 10 and maintaining at 10 for next 12 hrs. Echo on Tuesday Performing Physician Eitan Hernandez MD, FACC, RPVI Thank you for allowing [facility] to participate in this patient's care. Feel free to reach out in case of any followup questions.
[2024-09-16 03:16] LABS: Glucose,Whole Blood 115 mg/dL (70-110)
[2024-09-16] MEDS ORDERED: ONDANSETRON ODT 4 MG TAB PO PRN (03:21)
[2024-09-16] MEDS: SODIUM CHLORIDE 0.9% 1,000 ML IV SCH (03:30)
[2024-09-16] MEDS: NITROGLYCERIN-D5W PMX 50 MG in DEXTROSE/WATER 1 250ML.BAG IV SCH (03:46)
[2024-09-16] MEDS: METOPROLOL SUCCINATE (ER) 25 MG TAB.ER.24H PO SCH (04:08)
[2024-09-16] MEDS: CLOPIDOGREL 75 MG TAB PO SCH (04:08)
[2024-09-16] MEDS: FUROSEMIDE 10 MG/ML 2 ML VIAL IV SCH (04:09)
[2024-09-16] MEDS: ONDANSETRON 4 MG/2 ML VIAL IVP PRN (04:09)
--- NOTE | 2024-09-16 06:40 | P.HPIM ---
History of Present Illness H&P Date: 09/16/24 Chief Complaint: chest pain 74 year old female with hyperlipidemia Patient presented to the ER with chest pain that started Tuesday. The pain resolved with rest and sleep, but returned last night after waking up, prompting the decision to seek medical care. Patient reports recent significant stress due to a in the family. During episodes of chest pain, patient experienced profuse sweating on a couple of occasions. Patient denies breathing issues, nausea, or vomiting. Patient reports being otherwise fine and able to perform activities around the house normally. This represents a new symptom pattern for the patient. Patient reports consuming a shot or small drink daily. Denies smoking. PMHx Hyperlipidemia Anxiety disorder in the ED, Her EKG showed evidence of STEMI , and she was rushed to the cath lab manager she is seen post left heart cath, and reports no more chest pain, but is complaining of right leg cramps Review of systems All systems reviewed with pertinent positive negatives as per HPI Musculoskeletal: Leg cramps Cardiovascular: Chest pain with associated diaphoresis Pulmonary: Denies breathing issues Gastrointestinal: Denies nausea and vomiting on exam Constitutional: No acute distress, conversant, pleasant Eyes: Anicteric sclerae, moist conjunctiva, Pupils equal round reactive to light ENMT: NC/AT Oropharynx clear, no erythema, or exudates Neck: Supple, no masses, or JVD No carotid bruits No thyromegaly Lungs: Clear to auscultation Clear to percussion Normal respiratory effort, no accessory muscle use Cardiovascular: Heart regular in rate and rhythm, No murmurs, gallops, or rubs No peripheral edema Abdominal: Soft Nontender, no guarding, rebound or rigidity Abdomen moving with respiration Tenderness to percussion over the costovertebral angle left Extremities: No digital cyanosis No clubbing Pedal pulses intact and symmetrical Radial pulses intact and symmetrical No calf tenderness Psychiatric: Alert and oriented to person, place and time Appropriate affect fair judgement Neuro Muscles Strength 5/5 in all 4 extremities Sensation to light touch grossly present throughout Cranial nerves II-XII grossly intact Past Medical History Past Medical History: Hyperlipidemia, Osteoarthritis (OA) History of Any Multi-Drug Resistant Organisms: None Reported Past Surgical History: Hernia Repair Additional Past Surgical History / Comment(s): Left breast biopsy. Past Anesthesia/Blood Transfusion Reactions: No Reported Reaction Past Psychological History: Anxiety Smoking Status: Never smoker Past Alcohol Use History: Daily Additional Past Alcohol Use History / Comment(s): one- two drink daily Past Drug Use History: None Reported Medications and Allergies Home Medications Medication Instructions Recorded Confirmed Type Acetaminophen [Tylenol] 3,900 mg PO DAILY 06/11/24 06/29/24 History Atorvastatin [Lipitor] 20 mg PO DAILY 06/11/24 06/29/24 History Boswellia Cam/Turmeric Xt 500 mg PO DAILY 06/11/24 06/29/24 History [Synovx Relief Softgel] Cyanocobalamin (Vitamin B-12) 5,000 mcg PO DAILY 06/11/24 06/29/24 History [Vitamin B-12] Flunisolide Nasal [place] [Nasalide] 2 spray EA NOSTRIL DAILY 06/11/24 06/29/24 History Glucosamine HCl/Chondroitin Garcia 1 each PO DAILY 06/11/24 06/29/24 History [Glucosamine-Chondroitin Cap] Multivitamins, Thera [Multivitamin 1 tab PO DAILY 06/11/24 06/29/24 History (formulary)] clonazePAM [KlonoPIN] 0.5 mg PO BID 06/11/24 06/29/24 History cycloSPORINE 0.05% OPHTH SOLN 1 applicator BOTH EYES Q12H 06/11/24 06/29/24 History [Restasis] Allergies Allergy/AdvReac Type Severity Reaction Status Date / Time celecoxib [From Celebrex] Allergy Rash/Hives Verified 09/16/24 01:00 Physical Exam Vitals: Vital Signs Temp Pulse Pulse Resp BP BP Pulse Ox 09/16/24 06:10 64 14 123/78 94 L 09/16/24 06:00 66 15 127/83 94 L 09/16/24 05:50 73 16 127/83 93 L 09/16/24 05:40 77 35 H 130/80 94 L 09/16/24 05:30 66 10 L 124/77 96 09/16/24 05:20 68 10 L 124/77 93 L 09/16/24 05:10 64 3 L 121/80 96 09/16/24 05:00 76 16 117/68 93 L 09/16/24 04:50 90 11 L 117/68 84 L 09/16/24 04:40 77 8 L 126/82 95 09/16/24 04:30 71 14 113/77 97 09/16/24 04:20 72 6 L 113/77 96 09/16/24 04:10 76 9 L 122/77 98 09/16/24 04:00 77 12 114/79 97 09/16/24 03:50 78 8 L 114/79 98 09/16/24 03:40 84 25 H 117/86 95 09/16/24 03:30 81 16 123/78 95 09/16/24 03:20 76 12 123/78 97 09/16/24 03:10 98.0 F 70 12 09/16/24 03:08 13 123/78 97 09/16/24 02:53 98.0 F 16 123/78 95 09/16/24 02:03 84 18 128/92 96 09/16/24 01:33 82 09/16/24 00:56 98.2 F 89 20 134/71 98 Intake and Output 09/15/24 09/15/24 09/16/24 14:59 22:59 06:59 Intake Total 379.5 Balance 379.5 Intake: IV 379.5 Nitroglycerin-D5w Pmx 50 4.5 mg In Dextrose/Water 1 250ml.bag @ 5 MCG/MIN 1.5 mls/hr IV .Q24H [facility] Rx#: [id number] Sodium Chloride 0.9% 1, 225 000 ml @ 75 mls/hr IV . [id number] [facility] Rx#:[id number] Other: Voiding Method Bedpan # Voids 0 # Bowel Movements 0 Weight 58.967 kg Results CBC & Chem 7: 09/16/24 01:28 09/16/24 01:28 Labs: Abnormal Lab Results - Last 24 Hours (Table) 09/16/24 09/16/24 Range/Units 01:28 03:15 BUN 20 H (7-17) mg/dL Creatinine 1.28 H (0.52-1.04) mg/dL POC Glucose (mg/dL) 115 H (70-110) mg/dL Assessment and Plan Assessment: Patient presented with chest pain and EKG findings consistent with STEMI in anterior leads. Cardiac catheterization laboratory was activated and patient received nitro, aspirin, and statins. Cardiology evaluation and left heart catheterization revealed no significant stenosis but demonstrated spiral atherosclerosis of the LAD with tortuous arteries, thought to be possibly related to fibromuscular dysplasia. Plan: 1. Maximum medical therapy with aspirin and statin therapy 2. Nitro drip and metoprolol initiated 3. Check A1C and lipid panel 4. Continue IV fluid hydration 5. Monitor urine output and vital signs 6. Close cardiology follow-up EKG: STEMI in anterior leads Left heart catheterization: No significant stenosis, spiral atherosclerosis of LAD, tortuous arteries, possible fibromuscular dysplasia Laboratory results: - White blood cell count: 6 - Hemoglobin: 13.5 - Troponins: Negative - TSH: 3.67 - Sodium: 139 - Potassium: 4.5 - BUN: 20 - Creatinine: 1.28 slightly elevated , continue monitoring and IVF NS at 75 cc per hour DVT PPX heparin sc 5000 units tid
[2024-09-16] MEDS ORDERED: ATORVASTATIN 80 MG TAB PO SCH (09:00)
[2024-09-16] MEDS: HEPARIN SODIUM,PORCINE 5,000 UNIT/ML 1 ML VIAL SQ SCH (09:00)
[2024-09-16] MEDS ORDERED: METOPROLOL TARTRATE 25 MG TAB PO SCH (09:00)
[2024-09-16 09:04] LABS: Cholesterol 197.00 mg/dL (0.00-200.00); HDL Cholesterol 42.40 mg/dL (40.00-60.00); LDL Cholesterol,Calculated 85.4 mg/dL (0.0-131.0); Triglycerides 346.00 mg/dL (0.00-149.00); VLDL Calculation 69.20 mg/dL (5.00-40.00)
[2024-09-16] MEDS: ASPIRIN 81 MG PO SCH (09:28)
[2024-09-16] MEDS: PANTOPRAZOLE 40 MG TABLET PO SCH (12:57)
[2024-09-16 13:02] LABS: Basophils # (A) 0.03 10*3/uL (0.00-0.10); Basophils % (A) 0.5 %; Eosinophils # (A) 0.00 10*3/uL (0.04-0.35); Eosinophils % (A) 0.0 %; HCT 38.3 % (37.2-46.3); HGB 12.9 g/dL (12.0-15.0); Lymphocytes # (A) 1.16 10*3/uL (0.90-5.00); Lymphocytes % (A) 19.7 %; MCH 30.1 pg (27.0-32.0); MCHC 33.7 g/dL (32.0-37.0); MCV 89.5 fL (80.0-97.0); Monocytes # (A) 0.38 10*3/uL (0.20-1.00); Monocytes % (A) 6.5 %; Neutrophils # (A) 4.30 10*3/uL (1.80-7.70); Neutrophils % (A) 73.0 %; Platelet Count 253 10*3/uL (140-440); RBC 4.28 10*6/uL (4.10-5.20); RDW 13.1 % (11.5-14.5); WBC 5.89 10*3/uL (4.50-10.00)
[2024-09-16 13:17] LABS: ALT 27 U/L (4-34); AST 34 U/L (14-36); African American GFR (CKD) 77 (>60 ml/min/1.73 sqM); Albumin 4.3 g/dL (3.5-5.0); Alkaline Phosphatase 69 U/L (38-126); Anion Gap 10 mmol/L; Blood Urea Nitrogen 19 mg/dL (7-17); Calcium 9.1 mg/dL (8.4-10.2); Carbon Dioxide 23 mmol/L (22-30); Chloride 101 mmol/L (98-107); Glucose 148 mg/dL (74-99); Non-African American GFR(CKD) 67 (>60 ml/min/1.73 sqM); Potassium 4.2 mmol/L (3.5-5.1); Sodium 134 mmol/L (137-145); Total Protein 6.5 g/dL (6.3-8.2)
[2024-09-16] MEDS: clonazePAM 0.5 MG TAB PO PRN (17:57)
[2024-09-16] MEDS: ATORVASTATIN 40 MG TAB PO SCH (20:08)
[2024-09-16] MEDS: clonazePAM 0.5 MG TAB PO SCH (20:08)
--- NOTE | 2024-09-17 07:53 | P.PN ---
Subjective Progress Note Date: 09/17/24 PROGRESS NOTE The patient is a 74-year-old female who presented with an episode of acute chest discomfort and ST elevation in the anterior leads, she underwent cardiac catheterization by Dr. Hernandez and was found to have evidence suggestive of scad in the LAD with NBA II flow. The decision was to treat her medically. She is feeling well this morning, denying any chest discomfort, dizziness or palpitatio ns. She continues to be in sinus mechanism. Hemodynamically stable. She has a prior history of hyperlipidemia but no prior documented history of CAD. Medications: Aspirin, Lipitor 40 mg daily, Plavix 75 mg daily, Klonopin, metoprolol succinate 25 mg daily, Protonix PHYSICAL EXAMINATION: Blood pressure 121/60 heart rate 60 LUNGS: Clear to auscultation HEART: Regular rate and rhythm, S1, S2. No S3. Systolic ejection murmur, 2/6 at the base ABDOMEN: Soft, nontender, no organomegaly EXTREMETIES: No edema, right radial pulse intact LAB: Hemoglobin 12.9, BUN 19, creatinine 0.87. Troponin 0.344 and 0.647. IMPRESSION: 1. Acute anterior wall myocardial infarction with scad of the LAD 2. Hyperlipidemia PLAN: 1. Obtain an echocardiogram with Doppler 2. Increase physical activity 3. Transfer to telemetry 4. If stable probable discharge in 48 hours Objective - Vital Signs Vital signs: Vital Signs Temp 98.4 F 09/17/24 04:00 Pulse 65 09/17/24 04:00 Resp 14 09/17/24 04:00 BP 121/67 09/17/24 04:00 Pulse Ox 98 09/17/24 04:00 FiO2 Intake & Output 09/16/24 09/17/24 09/17/24 18:59 06:59 18:59 Intake Total 795.425 0 Output Total 1500 1500 Balance -704.575 -1500 Weight 58.2 kg Intake: IV 298.5 0 Nitroglycerin-D5w Pmx 50 13.5 0 mg In Dextrose/Water 1 250ml.bag @ 5 MCG/MIN 1.5 mls/hr IV .Q24H [facility] Rx#: [id number] Sodium Chloride 0.9% 1, 285 0 000 ml @ 75 mls/hr IV . [id number] [facility] Rx#:[id number] Intake, IV Titration 16.925 Amount Nitroglycerin-D5w Pmx 50 16.925 mg In Dextrose/Water 1 250ml.bag @ 5 MCG/MIN 1.5 mls/hr IV .Q24H [facility] Rx#: [id number] Oral 480 Output: Urine 1500 1500 Other: Voiding Method Toilet Toilet # Voids 1 - Labs CBC & Chem 7: 09/16/24 12:44 09/16/24 12:44 Labs: Abnormal Lab Results - Last 24 Hours (Table) 09/16/24 09/16/24 09/16/24 Range/Units 02:14 08:23 12:44 Eosinophils # 0.00 L (0.04-0.35) 10*3/uL Sodium (137-145) mmol/L BUN (7-17) mg/dL Glucose (74-99) mg/dL Troponin I 0.647 H* (0.000-0.034) ng/mL Triglycerides 346.00 H (0.00-149.00) mg/dL VLDL Cholesterol, Calc 69.20 H (5.00-40.00) mg/dL 09/16/24 Range/Units 12:44 Eosinophils # (0.04-0.35) 10*3/uL Sodium 134 L (137-145) mmol/L BUN 19 H (7-17) mg/dL Glucose 148 H (74-99) mg/dL Troponin I (0.000-0.034) ng/mL Triglycerides (0.00-149.00) mg/dL VLDL Cholesterol, Calc (5.00-40.00) mg/dL
[2024-09-17 08:01] LABS: Cholesterol 186.00 mg/dL (0.00-200.00); HDL Cholesterol 49.70 mg/dL (40.00-60.00); LDL Cholesterol,Calculated 99.5 mg/dL (0.0-131.0); Triglycerides 184.00 mg/dL (0.00-149.00); VLDL Calculation 36.80 mg/dL (5.00-40.00)
[2024-09-17] MEDS ORDERED: ASPIRIN 325 MG TAB PO SCH (09:00)
[2024-09-17] MEDS: CLOPIDOGREL 75 MG TAB PO SCH (09:16)
[2024-09-17] MEDS: METOPROLOL SUCCINATE (ER) 25 MG TAB.ER.24H PO SCH (09:17)
--- NOTE | 2024-09-17 12:45 | P.PN ---
Subjective Progress Note Date: 09/17/24 Hospital course Patient presented to the ER with chest pain that started Tuesday. The pain resolved with rest and sleep, but returned last night after waking up, prompting the decision to seek medical care. Patient reports recent significant stress due to a in the family. During episodes of chest pain, patient experienced profuse sweating on a couple of occasions. In the ED patient's EKG showed STEMI. Patient had an emergent heart catheterization that showed SCAD to LAD. Patient seen by cardiology is recommending medical management. Physical exam General examination - Alert and Oriented 3 in NAD Heart - + S1S2 no murmurs Lungs - Clear to auscultation Abdomen soft NT ND +ve BS Extremities - No edema TRIBAL DELEGATE - Moving all 4 extremities spontaneously Psych - Calm and cooperative Assessment and plan Acute anterior wall myocardial infarction with scad of the LAD Cardiology started the patient on aspirin 81 mg p.o. daily, Plavix 75 mg p.o. daily, metoprolol succinate 25 mg p.o. daily, atorvastatin 40 mg p.o. daily. Patient currently denies any chest pain and she is feeling a lot better. Patient is also off the nitro drip. I reviewed note from cardiology who is recommending possible discharge in the next 48 hours. Echocardiogram ordered and pending. Hyperlipidemia Continue atorvastatin Anxiety Continue with her home dose clonazepam DVT prophylaxis: Subcu heparin. Objective - Vital Signs Vital signs: Vital Signs Temp 98.0 F 09/17/24 12:00 Pulse 72 09/17/24 12:00 Resp 16 09/17/24 12:00 BP 133/76 09/17/24 12:00 Pulse Ox 99 09/17/24 12:00 FiO2 Intake & Output 09/16/24 09/17/24 09/17/24 18:59 06:59 18:59 Intake Total 795.425 0 Output Total 1500 1500 Balance -704.575 -1500 Weight 58.2 kg Intake: IV 298.5 0 Nitroglycerin-D5w Pmx 50 13.5 0 mg In Dextrose/Water 1 250ml.bag @ 5 MCG/MIN 1.5 mls/hr IV .Q24H [facility] Rx#: [id number] Sodium Chloride 0.9% 1, 285 0 000 ml @ 75 mls/hr IV . [id number] [facility] Rx#:[id number] Intake, IV Titration 16.925 Amount Nitroglycerin-D5w Pmx 50 16.925 mg In Dextrose/Water 1 250ml.bag @ 5 MCG/MIN 1.5 mls/hr IV .Q24H [facility] Rx#: [id number] Oral 480 Output: Urine 1500 1500 Other: Voiding Method Toilet Toilet Toilet # Voids 1 - Labs CBC & Chem 7: 09/16/24 12:44 09/16/24 12:44 Labs: Abnormal Lab Results - Last 24 Hours (Table) 09/16/24 09/16/24 09/17/24 Range/Units 12:44 12:44 05:38 Eosinophils # 0.00 L (0.04-0.35) 10*3/uL Sodium 134 L (137-145) mmol/L BUN 19 H (7-17) mg/dL Glucose 148 H (74-99) mg/dL Triglycerides 184.00 H (0.00-149.00) mg/dL
--- NOTE | 2024-09-17 13:03 | CA ---
Transthoracic Echo Report Name: Kae Abreu Age: 74 Gender: F : 1950 Exam Date: 09/17/2024 08:20 Exam Location: [facility] Ht (in): 62 Wt (lb): 130 Ordering Physician: Eitan Hernandez MD ([email or web address]) Attending/Referring Phys: Deep Tissue Massage Therapist Natalee Caruso RDCS Procedure CPT: Indications: stemi Cardiac Hx: Technical Quality: Good Contrast 1: Total Dose (mL): Contrast 2: Total Dose (mL): MEASUREMENTS (Male / Female) Normal Values 2D ECHO LV Diastolic Diameter PLAX 4.3 cm 4.2 - 5.9 / 3.9 - 5.3 cm LV Systolic Diameter PLAX 3.0 cm IVS Diastolic Thickness 0.8 cm 0.6 - 1.0 / 0.6 - 0.9 cm LVPW Diastolic Thickness 0.8 cm 0.6 - 1.0 / 0.6 - 0.9 cm LV Relative Wall Thickness 0.4 LVOT Diameter 2.0 cm LV Diastolic Volume MOD BP 59.9 cm??? 67 - 155 / 56 - 104 cm??? LV Systolic Volume MOD BP 23.1 cm??? 22 - 58 / 19 - 49 cm??? LV Ejection Fraction MOD BP 61.4 % >= 55 % LV Cardiac Index MOD BP 1687.5 cm???/min???m??? LV Diastolic Volume MOD 4C 61.1 cm??? LV Systolic Volume MOD 4C 20.4 cm??? LV Ejection Fraction MOD 4C 66.6 % LV Cardiac Index MOD 4C 1865.5 cm???/min???m??? LV Diastolic Length 4C 6.9 cm LV Systolic Length 4C 6.1 cm LV Diastolic Volume MOD 2C 58.5 cm??? LV Systolic Volume MOD 2C 24.8 cm??? LV Ejection Fraction MOD 2C 57.6 % LV Cardiac Index MOD 2C 1541.7 cm???/min???m??? LV Diastolic Length 2C 6.9 cm LV Systolic Length 2C 5.8 cm LA Volume 36.0 cm??? 18 - 58 / 22 - 52 cm??? LA Volume Index 22.3 cm???/m??? 16 - 28 cm???/m??? Ascending Aorta Diameter 3.6 cm DOPPLER AV Peak Velocity 157.4 cm/s AV Peak Gradient 9.9 mmHg AV Mean Velocity 113.1 cm/s AV Mean Gradient 5.6 mmHg AV Velocity Time Integral 33.7 cm LVOT Peak Velocity 118.0 cm/s LVOT Peak Gradient 5.6 mmHg LVOT Velocity Time Integral 25.0 cm LVOT Stroke Volume 78.1 cm??? LVOT Stroke Volume Index 49.1 ml/m??? LVOT Cardiac Index 3578.2 cm???/min???m??? AV Area Cont Eq vti 2.3 cm??? AV Area Cont Eq pk 2.3 cm??? MV Area PHT 3.3 cm??? Mitral E Point Velocity 64.8 cm/s Mitral A Point Velocity 87.5 cm/s Mitral E to A Ratio 0.7 MV Deceleration Time 229.4 ms TR Peak Velocity 235.2 cm/s TR Peak Gradient 22.1 mmHg Right Atrial Pressure 5.0 mmHg Pulmonary Artery Systolic Pressu 27.1 mmHg Right Ventricular Systolic Press 27.1 mmHg PV Peak Velocity 75.0 cm/s PV Peak Gradient 2.2 mmHg FINDINGS Left Ventricle Left ventricular ejection fraction is estimated at 50 %. Left ventricular cavity size normal. Left ventricular wall thickness normal. Anterior apical segment hypokinetic. Right Ventricle Normal right ventricular size and function. Right ventricular systolic pressure within normal limits. Right Atrium Normal right atrial size. Left Atrium Normal left atrial size. Mitral Valve Mitral valve thickened. Mitral annular calcification. No evidence for mitral valve prolapse. No mitral stenosis. Mild to moderate mitral regurgitation. Aortic Valve Trileaflet aortic valve. Diffuse thickening (sclerosis) of the aortic valve cusps without reduced excursion. No aortic valve stenosis or regurgitation. Tricuspid Valve Structurally normal tricuspid valve. Mild tricuspid regurgitation. No tricuspid stenosis. Pulmonic Valve Pulmonic valve not well visualized. No pulmonic stenosis. No pulmonic regurgitation. Pericardium No pericardial effusion. Aorta Normal size aortic root and proximal ascending aorta. CONCLUSIONS Low normal LV systolic function with EF at 50% Mild to moderate MR Aortic sclerosis with no stenosis or insufficiency Previewed by: Dr. Cj Alvarez MD (Electronically Signed) Final Date: 17 September 2024 13:03
[2024-09-17] MEDS: HEPARIN SOD,PORK IN 0.45% NACL 25,000 UNIT in 0.45% NACL 1 250ML.BAG IV SCH (14:01)
--- NOTE | 2024-09-18 09:34 | P.PN ---
Subjective Progress Note Date: 09/18/24 The patient is a 74-year-old female who presented with an episode of acute chest discomfort and ST elevation in the anterior leads, she underwent cardiac catheterization by Dr. Hernandez and was found to have evidence suggestive of scad in the LAD with NBA II flow. The decision was to treat her medically. She is feeling well this morning, denying any chest discomfort, dizziness or palpitations. She continues to be in sinus mechanism. Hemodynamically stable. She has a prior history of hyperlipidemia but no prior documented history of CAD. 09/18/2024 Patient was seen and examined sitting up in a chair. Overall she is feeling well. She denies any shortness of breath or chest discomfort. Vital signs been stable. Maintaining sinus mechanism. Patient had multiple questions regarding 's recent COVID infection, activity restrictions, NSAID use, effects of medications on renal function. All questions were answered. Medications: Aspirin, Lipitor 40 mg daily, Plavix 75 mg daily, Klonopin, metoprolol succinate 25 mg daily, Protonix PHYSICAL EXAMINATION: Blood pressure 121/60 heart rate 60 LUNGS: Clear to auscultation HEART: Regular rate and rhythm, S1, S2. No S3. Systolic ejection murmur, 2/6 at the base ABDOMEN: Soft, nontender, no organomegaly EXTREMETIES: No edema, right radial pulse intact LAB: Hemoglobin 12.9, BUN 19, creatinine 0.87. Troponin 0.344 and 0.647. IMPRESSION: 1. Acute anterior wall myocardial infarction with scad of the LAD 2. Hyperlipidemia PLAN: From cardiology's perspective medications were reviewed and we will continue the same. Anticipate discharge possibly tomorrow if patient remains stable. Increase activity. We will continue to follow the patient and provide further recommendations accordingly. [employer] note has been reviewed, I agree with a documented findings and plan of care. Patient was seen and examined. Objective - Vital Signs Vital signs: Vital Signs Temp 98 F 09/17/24 23:03 Pulse 66 09/18/24 03:34 Resp 16 09/18/24 03:34 BP 123/73 09/18/24 03:34 Pulse Ox 99 09/18/24 03:34 FiO2 Intake & Output 09/17/24 09/18/24 09/18/24 18:59 06:59 18:59 Intake Total 540 1020 Balance 540 1020 Weight 57.9 kg Intake: Oral 540 1020 Other: Voiding Method Toilet Toilet # Voids 2 2 - Labs CBC & Chem 7: 09/16/24 12:44 09/16/24 12:44
--- NOTE | 2024-09-18 14:22 | P.PN ---
Subjective Progress Note Date: 09/18/24 Hospital Course: Patient presented to the ER with chest pain that started Tuesday. The pain r esolved with rest and sleep, but returned last night after waking up, prompting the decision to seek medical care. Patient reports recent significant stress due to a in the family. During episodes of chest pain, patient experienced profuse sweating on a couple of occasions. In the ED patient's EKG showed STEMI. Patient had an emergent heart catheterization that showed SCAD to LAD. Patient seen by cardiology is recommending medical management. Lipid panel revealed LDL of 99.5, triglyceride 184, cholesterol 186. 09/18: Patient seen examined at bedside, no acute events overnight, patient denies any chest or arm pain, no shortness of breath, she is ambulating independently. She shared that her tested positive for COVID, she is currently symptoms free, COVID was negative on 09/17. She is afebrile with heart rate in the 70s, BP 112/79, satting well on room air. No morning blood work available for review. Discussed with RN, per cardiology anticipate discharge 09/19 if patient remains stable. Pertinent positives and negatives as discussed above, a complete review of [employer] ms was performed and all other systems are negative. Vitals Signs Reviewed. 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 daily, Protonix 40 mg p.o. daily Anxiety: Continue home Klonopin 0.5 mg p.o. twice daily DVT ppx: Heparin Code status: Full code Anticipated discharge place: Home Anticipated discharge time: 09/19 Objective - Vital Signs Vital signs: Vital Signs Temp 97.8 F 09/18/24 08:00 Pulse 74 09/18/24 12:00 Resp 16 09/18/24 12:00 BP 141/79 09/18/24 12:00 Pulse Ox 98 09/18/24 12:00 FiO2 Intake & Output 09/17/24 09/18/24 09/18/24 18:59 06:59 18:59 Intake Total 540 1020 240 Balance 540 1020 240 Weight 57.9 kg Intake: Oral 540 1020 240 Other: Voiding Method Toilet Toilet Toilet # Voids 2 2 - Labs CBC & Chem 7: 09/16/24 12:44 09/16/24 12:44
[2024-09-18 19:35] VITALS: RESP 16; TEMP 98.7
[2024-09-18] MEDS: AZELASTINE 137MCG/SPRAY EA NOSTRIL SCH (20:13)
[2024-09-19 05:56] VITALS: PULSE 79
[2024-09-19 08:50] VITALS: BP 111/73
--- NOTE | 2024-09-19 09:53 | P.DS ---
Providers Date of admission: 09/16/24 01:45 Attending physician: Sallie Cardoso MD Consults: 09/16/24 01:43 Consult Physician Urgent Consulting Provider: Eitan Hernandez Consult Reason/Comments: stmi Do you want consulting provider notified?: Yes Primary care physician: Jules Bales [facility] Course: Discharge Diagnosis: Acute anterior wall STEMI with scad to LAD Hyperlipidemia Hospital Course: Patient presented to the ER with chest pain that started Tuesday. The pain resolved with rest and sleep, but returned last night after waking up, prompting the decision to seek medical care. Patient reports recent significant stress due to a in the family. During episodes of chest pain, patient experienced profuse sweating on a couple of occasions. In the ED patient's EKG showed S SAL. Patient had an emergent heart catheterization that showed SCAD to LAD. Patient seen by cardiology is recommending medical management. Lipid panel revealed LDL of 99.5, triglyceride 184, cholesterol 186. TTE showed EF of 50%, mild to moderate MR, aortic sclerosis with no stenosis or insufficiency. 09/18: Patient seen examined at bedside, no acute events overnight, patient denies any chest or arm pain, no shortness of breath, she is ambulating independently. She shared that her tested positive for COVID, she is currently symptoms free, COVID was negative on 09/17. She is afebrile with heart rate in the 70s, BP 112/79, satting well on room air. No morning blood work available for review. Discussed with RN, per cardiology anticipate discharge 09/19 if patient remains stable. Patient was kept overnight for further monitoring and cleared for discharge on 09/19 by cardiology team. Patient will be discharged on DAPT, high intensity statins with Lipitor 40, Toprol-XL 25 daily. Patient seen and examined at bedside. Patient's and registered nurse present at bedside Vital signs reviewed and stable. General: Nontoxic, no distress, appears at stated age Derm: Warm, dry Head: Atraumatic, normocephalic, symmetric Eyes: EOMI, no lid lag, anicteric sclera Mouth: No lip lesion, mucus membranes moist Cardiovascular: S1S2 reg, no murmur Lungs: CTA bilateral, no rhonchi, no rales, no accessory muscle use Abdominal: Soft, nontender to palpation, no guarding, no appreciable organomegaly Ext: No gross muscle atrophy, no edema, no contractures Neuro: CN II-XI grossly intact, no focal neuro deficits Psych: Alert, oriented, appropriate affect A total of 40 minutes of time were spent preparing this complex discharge summary. Patient was discharged on 09/19. Patient Condition at Discharge: Serious Plan - Discharge Summary Discharge Rx Participant: No New Discharge Prescriptions: New Pantoprazole [Protonix] 40 mg PO AC-BRKFST #30 tab Metoprolol Succinate (ER) [Toprol XL] 25 mg PO DAILY #30 tab Aspirin 81 mg PO DAILY #30 tab Atorvastatin [Lipitor] 40 mg PO HS #30 tab Clopidogrel [Plavix] 75 mg PO DAILY #30 tab Nitroglycerin Sl Tabs [Nitrostat] 0.4 mg SUBLINGUAL Q5M PRN #25 tab PRN Reason: Chest Pain Continue clonazePAM [KlonoPIN] 0.25 mg PO DAILY PRN PRN Reason: Anxiety Azelastine HCl [Astelin Nasal [place]] 1 spray EA NOSTRIL BID cycloSPORINE 0.05% OPHTH SOLN [Restasis] 1 applicator BOTH EYES Q12H clonazePAM [KlonoPIN] 0.5 mg PO BID Hormone Replacement Cream 1 ml TOPICAL DAILY Discontinued Atorvastatin [Lipitor] 20 mg PO HS Discharge Medication List clonazePAM [KlonoPIN] 0.5 mg PO BID 06/11/24 [History] cycloSPORINE 0.05% OPHTH SOLN [Restasis] 1 applicator BOTH EYES Q12H 06/11/24 [History] Azelastine HCl [Astelin Nasal [place]] 1 spray EA NOSTRIL BID 09/16/24 [History] Hormone Replacement Cream 1 ml TOPICAL DAILY 09/16/24 [History] clonazePAM [KlonoPIN] 0.25 mg PO DAILY PRN 09/16/24 [History] Aspirin 81 mg PO DAILY #30 tab 09/19/24 [Rx] Atorvastatin [Lipitor] 40 mg PO HS #30 tab 09/19/24 [Rx] Clopidogrel [Plavix] 75 mg PO DAILY #30 tab 09/19/24 [Rx] Metoprolol Succinate (ER) [Toprol XL] 25 mg PO DAILY #30 tab 09/19/24 [Rx] Nitroglycerin Sl Tabs [Nitrostat] 0.4 mg SUBLINGUAL Q5M PRN #25 tab 09/19/24 [Rx] Pantoprazole [Protonix] 40 mg PO AC-BRKFST #30 tab 09/19/24 [Rx] Follow up Appointment(s)/Referral(s): Radha Evans MD [STAFF PHYSICIAN] - 1 Week Jules Bales DO [Primary Care Provider] - 1-2 days Patient Instructions/Handouts: Heart Attack (DC), DASH Eating Plan (DC) Activity/Diet/Wound Care/Special Instructions: Please, follow-up with your primary care physician, mobile pet groomer. Follow heart healthy diet, recommend 2 g of salt restriction per day, watch food labels, avoid frozen meals, fast food, canned food. Discharge Disposition: HOME SELF-CARE
--- NOTE | 2024-09-19 10:53 | P.PN ---
Subjective Progress Note Date: 09/19/24 The patient is a 74-year-old female who presented with an episode of acute chest discomfort and ST elevation in the anterior leads, she underwent cardiac catheterization by Dr. Hernandez and was found to have evidence suggestive of scad in the LAD with NBA II flow. The decision was to treat her medically. She is feeling well this morning, denying any chest discomfort, dizziness or palpitations. She continues to be in sinus mechanism. Hemodynamically stable. She has a prior history of hyperlipidemia but no prior documented history of CAD. 09/18/2024 Patient was seen and examined sitting up in a chair. Overall she is feeling well. She denies any shortness of breath or chest discomfort. Vital signs been stable. Maintaining sinus mechanism. Patient had multiple questions regarding 's recent COVID infection, activity restrictions, NSAID use, effects of medications on renal function. All questions were answered. 09/19/2024 Patient seen and examined. She denies chest pain, chest pressure, palpitations. No shortness of breath. Blood pressure 111/73, heart rate 79, pulse ox 98% on room air. No repeat blood work. Medications: Aspirin, Lipitor 40 mg daily, Plavix 75 mg daily, Klonopin, metoprolol succinate 25 mg daily, Protonix PHYSICAL EXAMINATION: Blood pressure 121/60 heart rate 60 LUNGS: Clear to auscultation HEART: Regular rate and rhythm, S1, S2. No S3. Systolic ejection murmur, 2/6 at the base ABDOMEN: Soft, nontender, no organomegaly EXTREMETIES: No edema, right radial pulse intact LAB: Hemoglobin 12.9, BUN 19, creatinine 0.87. Troponin 0.344 and 0.647. IMPRESSION: 1. Acute anterior wall myocardial infarction with scad of the LAD 2. Hyperlipidemia PLAN: From cardiology's perspective medications were reviewed and we will continue the same. Patient is cleared for discharge from cardiology perspective. Patient will follow-up with Dr. Hernandez in 1 week. GRE[employer]ILDING DES[employer] SPECIALIST note has been reviewed, I agree with a documented findings and plan of care. Patient was seen and examined. Objective - Vital Signs Vital signs: Vital Signs Temp 98.7 F 09/18/24 19:31 Pulse 79 09/19/24 08:48 Resp 16 09/19/24 08:48 BP 111/73 09/19/24 08:48 Pulse Ox 98 09/19/24 08:48 FiO2 Intake & Output 09/18/24 09/19/24 09/19/24 18:59 06:59 18:59 Intake Total 358 10 250 Balance 358 10 250 Weight 58.2 kg Intake: IV 10 10 Invasive Line 1 10 10 Oral 358 240 Other: Voiding Method Toilet Toilet Toilet # Voids 2 2 - Labs CBC & Chem 7: 09/16/24 12:44 09/16/24 12:44
== END 2024-09-19 10:36 | disposition home or self-care (01) | DRG 280 ==
LOC: EC 00:53 → 2SICU 01:45 → 3SCARD 09-17 12:52
PROVIDERS: ADMIT Internal Medicine; ATTEND Internal Medicine
PROC: B2111ZZ Fluoroscopy of Multiple Coronary Arteries using Low Osmolar Contrast (ICD-10-PCS; principal; 2024-09-16 02:06)
PROC: 4A023N7 Measurement of Cardiac Sampling and Pressure, Left Heart, Percutaneous Approach (ICD-10-PCS; principal; 2024-09-16 02:06)
DX: I21.09 ST elevation (STEMI) myocardial infarction involving other coronary artery of anterior wall (principal); I25.42 Coronary artery dissection; I08.0 Rheumatic disorders of both mitral and aortic valves; E78.00 Pure hypercholesterolemia, unspecified; F41.9 Anxiety disorder, unspecified; I25.10 Atherosclerotic heart disease of native coronary artery without angina pectoris; Z79.02 Long term (current) use of antithrombotics/antiplatelets; Z79.82 Long term (current) use of aspirin; Z79.890 Hormone replacement therapy; Z79.899 Other long term (current) drug therapy; Z20.822 Contact with and (suspected) exposure to COVID-19; Z88.8 Allergy status to other drugs, medicaments and biological substances
CPT/HCPCS: 36415; 71045; 80053; 80061; 80320; 82550; 83036; 83735; 83880; 84100; 84443; 84484; 85025; 85379; 85610; 85730; 87635; 93005; 93306; 93458; 96365; 96375; 99291